=== PATIENT | male | born 1935 | race Caucasian/White ===

== ENCOUNTER 2019-07-15 15:50 | Outpatient (CLI) | payer MEDICARE, SELFPAY ==
--- NOTE | ~2019-07-15 | XR_ITS ---
XR abdomen obstructive series 07/15/2019 16:20 Indication: Dominant distention. Evaluate for obstruction. Procedure: Supine and upright views of the abdomen Comparison: No prior studies for comparison. Findings: There is moderate gas throughout the colon with gas in the rectum. No definite small bowel dilation. Moderate fecal material in the colon. No free air. No pneumatosis. There are calcified gran ulomas in the left lung base. No acute osseous abnormality. Impression: 1: No bowel obstruction. Moderate gas in the colon, possibly ileus. Moderate colonic fecal loading. Reviewed, dictated and finalized at location A. LANCE MODEL Impression: 1: No bowel obstruction. Moderate gas in the colon, possibly ileus. Moderate co lonic fecal loading.
== END 2019-07-15 15:51 | disposition home or self-care (01) ==
LOC: ANHIMG 15:57
PROVIDERS: PCP Physician Assistant; Visit Provider Physician Assistant
DX: R14.0 Abdominal distension (gaseous) (principal)
CPT/HCPCS: 74019

== ENCOUNTER 2020-03-23 17:51 | Emergency (ER) | payer MEDICARE, SELFPAY ==
--- NOTE | ~2020-03-23 | XR_ITS ---
EXAMINATION: XR chest 2V DATE: 03/23/2020 19:58 INDICATION: Mid chest pain TECHNIQUE: PA and lateral views of the chest are obtained. COMPARISON: 06/01/2011 FINDINGS: The lungs are hyperinflated but free of acute opacities. Calcified pulmonary nodules and ca lcified left hilar lymph nodes are consistent with old granulomatous disease. There is scarring in th e lung apices. There is no pleural effusion or pneumothorax. The cardiomediastinal silhouette is norm al. There is mild thoracic spondylosis. IMPRESSION: 1. Hyperinflation without acute cardiopulmonary abnormality. Reviewed, dictated and finalized at location A.
--- NOTE | ~2020-03-23 | CT_ITS ---
EXAMINATION: CT brain wo con INDICATION: Headache COMPARISON: 06/01/2011 TECHNIQUE: Standard unenhanced head CT. The dose-length product (DLP) was 605.33 mGy-cm. The mA was a djusted according to patient size. Iterative reconstruction technique was employed. FINDINGS: There is no acute intraparenchymal hemorrhage. No evidence of mass lesion. No evidence of a cute infarction. There is mild periventricular and subcortical hypodensity probably related to small vessel ischemic disease. There is mild prominence of the sulci and ventricles related to cerebral atr ophy. Intracranial calcified cerebral atherosclerosis is noted. There are no extra-axial collections. There is no mass effect or midline shift. The orbits and soft tissues are unremarkable. There is mil d mucosal thickening of the paranasal sinuses. IMPRESSION: 1. No acute intracranial abnormality. 2. Age related findings. Reviewed, dictated and finalized at location A.
--- NOTE | ~2020-03-23 | XR_ITS ---
EXAMINATION: XR ribs LT 2V INDICATION: Left chest pain TECHNIQUE: 3 views of the left ribs were obtained. COMPARISON: 06/01/2011 FINDINGS: No displaced rib fracture is identified. The left hemithorax is free of acute opacities. Ca lcified pulmonary nodules and calcified left hilar lymph nodes are consistent with old granulomatous disease. IMPRESSION: 1. No displaced rib fracture identified. Reviewed, dictated and finalized at location A.
--- NOTE | ~2020-03-23 | CT_ITS ---
EXAMINATION: CTA chest PE protocol DATE: 03/24/2020 04:22 INDICATION: Chest pain, midsternal area. TECHNIQUE: Computed tomography angiography (CTA) of the chest was performed with 100 mL Omnipaque-350 intravenous contrast timed to evaluate the pulmonary arteries. Coronal maximum intensity projection 3D-reconstructions were created by the technologist. Automated exposure control and iterative reconst ruction technique were employed. Exam dose: 281.00 mGy-cm total exam DLP. COMPARISON: None. FINDINGS: There is diagnostic contrast enhancement of pulmonary embolism and no evidence of pulmonary embolism. There is thoracic aortic, great vessel and coronary artery calcification. No thoracic aortic aneurysm or dissection. Normal heart size. No pericardial or pleural effusion. No hilar or mediastinal mass lesion or lymphadenopathy. Old pulmonary granulomatous disease. Calcifie d hepatic and splenic granulomas. Bilateral apical fibrocalcific scarring. Impression 4 mm lingular indeterminate opacity (series 4 image 65). No pulmonary infiltrate or consolidation. IMPRESSION: No evidence of pulmonary embolism Old pulmonary granulomatous disease Reviewed, dictated and finalized at Location A. Reviewed, dictated and finalized at location A. Impression 4 mm lingular indeterminate opacity (series 4 image 65). No pulmonary infiltrate or consolidation.
--- NOTE | 2020-03-23 17:52 | ECG_ITS ---
Measurements Intervals [place] Rate: 92 P: 74 MS: 294 QRS: -5 QRSD: 86 T: 58 QT: 361 QTc: 447 Interpretive Statements SINUS RHYTHM WITH FIRST DEGREE AV BLOCK SUPRAVENTRICULAR BIGEMINY AND ATRIAL PREMATURE COMPLEXES CANNOT RULE OUT SEPTAL INFARCT, AGE INDETERMINATE BASELINE WANDER- I, III, AVL ABNORMAL ECG Electronically Signed On 03-23-2020 20:50:28 CDT by Des Gatica D.O.
[2020-03-23 19:04] VITALS: BP 146/70; PULSE 99; RESP 18; TEMP 36.9; O2SAT 99
[2020-03-23 19:16] LABS: Basophils Percent Auto 0.3 % (0.2-1.2); Eosinophils Absolute Auto 0.1 K/mm3 (0-0.3); Eosinophils Percent Auto 1.2 % (0-4.4); Hematocrit 35.4 % (42.0-52.0); Hemoglobin 11.6 g/dL (14.0-18.0); Immature Granulocyte Absolute 0.04 K/mm3 (0.00-0.031); Immature Granulocyte Percent A 0.4 % (0-0.5); Lymphocytes Absolute Auto 1.06 K/mm3 (0.9-3.2); Lymphocytes Percent Auto 10.3 % (18.3-44.2); Mean Corpuscular HGB Conc 32.8 g/dl (32-36); Mean Corpuscular Hemoglobin 31.5 pg (26-34); Mean Corpuscular Volume 96.2 fl (80-100); Mean Platelet Volume 9.3 fl (7.4-10.4); Monocytes Absolute Auto 0.6 K/mm3 (0.1-0.6); Monocytes Percent Auto 6.1 % (2.6-8.5); Neutrophils Absolute Auto 8.4 K/mm3 (1.3-6.7); Neutrophils Percent Auto 81.7 % (45.5-73.1); Platelet Count Result 325 k/mm3 (150-375); Red Blood Count 3.68 M/mm3 (4.6-6.20); White Blood Count 10.3 K/mm3 (4.5-10.0)
[2020-03-23 19:28] LABS: Prothrombin Time 12.8 Seconds (11.1-14.7)
[2020-03-23 19:29] LABS: Partial Thromboplastin Time 27.1 SECONDS (22.3-36.8)
[2020-03-23 19:47] LABS: Anion Gap 12 mmol/L (8-16); Blood Urea Nitrogen 29 mg/dL (9-20); Carbon Dioxide 25 mmol/L (22-30); Chloride 105 mmol/L (98-107); Estimated CRCL calculation 46 ml/min; Estimated Glomerular Filt Rate > 60; Glucose 136 mg/dL (75-110); Potassium 4.6 mmol/L (3.4-5.0); Sodium 142 mmol/L (137-145)
[2020-03-23 19:59] LABS: Troponin I < 0.012 ng/mL (0.000-0.034)
[2020-03-23 22:00] VITALS: BP 168/73; PULSE 67; RESP 15; TEMP 36.7; O2SAT 98
[2020-03-23 22:30] LABS: Troponin I < 0.012 ng/mL (0.000-0.034)
[2020-03-23 22:37] VITALS: PULSE 88
--- NOTE | 2020-03-23 22:38 | ED.CHESTPAIN ---
HPI - Chest Pain General Chief Complaint: Chest Pain Stated Complaint: CP Time Seen by Provider: 03/23/20 22:32 Source: RN notes reviewed History of Present Illness HPI narrative: Patient presents emergency department from home for chest pain. Patient states the pain is located over his bilateral anterior chest. States the pain is described as aching and worse with movement of his arms bilaterally as well as deep inspiration. Per the patient's son is present patient had an episode of hypoglycemia at approximately 1230 today when he was at his house with a friend. At that time the patient fell striking his left frontal head and his chest and has had pain since that time. He is taken no previous pain medication. Patient denies any fevers or chills shortness of breath abdominal pain nausea vomiting diarrhea or any other symptoms. Related Data Allergies Allergy/AdvReac Type Severity Reaction Status Date / Time No Known Allergies Allergy Verified 03/23/20 19:08 Review of Systems Review of Systems: Narrative: Gen.: Denies fevers or chills Eyes: Denies eye pain or visual change ENT: Denies congestion Respiratory: Denies shortness of breath or cough CV: See HPI GI: Denies abdominal pain nausea, emesis or diarrhea denies burning, urgency, frequency or hematuria Musculoskeletal: Denies back pain or muscle pain Neuro: Denies numbness, tingling, weakness or focal weakness Skin: Denies rash Except as documented, all other systems reviewed and negative [facility] Past Medical History Medical History (Updated 03/24/20 @ 00:08 by Anders Florentino DO) Diabetes mellitus Social History Social History (Updated 03/23/20 @ 22:39 by Anders Florentino DO) Smoking status: Never smoker Gender identity (if verbalized by the patient): Male Sexual Orientation (if Verbalized by the Patient): Straight or Heterosexual Exam Narrative: Exam Narrative: APPEARANCE: No acute distress, nontoxic, resting in bed EYES: EOMI HEENT: Normocephalic, cysts swelling and mild tenderness over the left forehead with overlying abrasion, the remainder the face is nontender nares pain or mucosa moist Neck: Supple, no midline tenderness to palpation full range of motion without pain RESPIRATORY: No respiratory distress Clear to auscultation bilaterally with no rhonchi wheezing or rales. CARDIOVASCULAR: Regular rate and rhythm without murmurs rubs or gallops. Chest: Tender palpation of the left anterior inferior ribs 8 through 10, pain increased with deep inspiration and movement of the torso ABDOMINAL: Soft, nontender, nondistended, no rebound or guarding MUSCULOSKELETAl: Moves all extremities. No clubbing, cyanosis or edema. NEURO: Awake and alert x 3. Following commands, speech normal, no focal deficits SKIN:: Warm, dry. No rashes lesions or abrasions PSYCHIATRIC: Normal affect/mood, Course Course Emergency Course: Following CT can reevaluate the patient the patient has no midline tenderness over the sternum doubt sternal fracture Vital Signs Vital signs: Vital Signs Temperature 98.4 F 03/23/20 19:04 Pulse Rate 99 03/23/20 19:04 Respiratory Rate 18 03/23/20 19:04 Blood Pressure 146/70 H 03/23/20 19:04 Pulse Oximetry 99 03/23/20 19:04 Temperature 98.1 F 03/23/20 22:00 Pulse Rate 90 03/24/20 00:00 Respiratory Rate 17 03/24/20 00:00 Blood Pressure 113/68 03/24/20 00:00 Pulse Oximetry 100 03/24/20 00:00 MDM - Chest Pain Lab Data Result diagrams: 03/23/20 19:07 03/23/20 19:07 Labs: Lab Results 03/23/20 03/23/20 03/23/20 Range/Units 19:07 19:07 19:07 WBC 10.3 H (4.5-10.0) K/mm3 RBC 3.68 L (4.6-6.20) M/mm3 Hgb 11.6 L (14.0-18.0) g/dL Hct 35.4 L (42.0-52.0) % MCV 96.2 (80-100) fl MCH 31.5 (26-34) pg MCHC 32.8 (32-36) g/dl RDW 13.0 (11.5-14.5) % Plt Count 325 (150-375) k/mm3 MPV 9.3 (7.4-10.4) fl Immature Gran % (Auto) 0.4 (0-0
--- NOTE | 2020-03-23 23:23 | PC.NURSE ---
I am charting the EKG, I did not take it.
[2020-03-24] VITALS: BP 113/68; PULSE 90; RESP 17; O2SAT 100
[2020-03-24 04:53] LABS: Troponin I < 0.012 ng/mL (0.000-0.034)
== END 2020-03-24 02:00 | disposition home or self-care (01) ==
PROVIDERS: General Practice; Emergency Provider Emergency Medicine; PCP Physician Assistant
DX: R07.89 Other chest pain (principal); S00.83XA Contusion of other part of head, initial encounter; W19.XXXA Unspecified fall, initial encounter; E11.9 Type 2 diabetes mellitus without complications
CPT/HCPCS: 36415; 70450; 71046; 71100; 71275; 80048; 84484; 85025; 85610; 85730; 93005; 96374; 99284; J0131; Q9967

== ENCOUNTER 2020-08-16 17:28 | Emergency (ER) | payer MEDICARE, SELFPAY ==
--- NOTE | ~2020-08-16 | CT_ITS ---
EXAMINATION: CT brain wo con INDICATION: Head injury COMPARISON: 03/23/2020 TECHNIQUE: Standard unenhanced head CT. The dose-length product (DLP) was 605.33 mGy-cm. The mA was a djusted according to patient size. Iterative reconstruction technique was employed. FINDINGS: There is no acute intraparenchymal hemorrhage. No evidence of mass lesion. No evidence of a cute infarction. 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 There is mild periventric ular and subcortical hypodensity probably related to small vessel ischemic disease. There is mild pro minence of the sulci and ventricles related to cerebral atrophy. Intracranial calcified cerebral athe rosclerosis is noted. There are no extra-axial collections. There is no mass effect or midline shift. Left frontal scalp soft tissue swelling is noted. There is a small right mastoid effusion. IMPRESSION: 1. Left frontal scalp soft tissue swelling without acute intracranial abnormality. 2. Age related findings. Reviewed, dictated and finalized at location A. RINARY ANATOMIST IMPRESSION: 1. Left frontal scalp soft tissue swelling without acute intracranial abnormali ty. 2. Age related findings.
--- NOTE | ~2020-08-16 | CT_ITS ---
EXAMINATION: CT facial & cervical spine wo DATE: 08/16/2020 19:01 INDICATION: Facial and neck pain, head injury TECHNIQUE: Computed tomography (CT) of the maxillofacial region and cervical spine was performed with out intravenous contrast. The dose-length product (DLP) was 211.21 mGy-cm. Automated exposure control and iterative reconstruction technique were employed. COMPARISON: None FINDINGS: MAXILLOFACIAL CT: There is left frontal scalp soft tissue swelling. No facial bone fracture is identified. There is min imal mucosal thickening of the ethmoidal air cells. A small right mastoid effusion is noted. Changes in the globes are likely from ocular lens surgery. CERVICAL SPINE CT: There is no fracture, dislocation, or subluxation. There is severe loss of intervertebral disc space height at C6-7. Moderate loss of intervertebral disc space height is present throughout the remainder of the cervical spine. There is fibrous union of the posterior C1 ring. The odontoid is intact. The prevertebral soft tissues are normal. There is calcification of the posterior longitudinal ligament w hich results in moderate to severe stenosis at multiple levels in the cervical spine. IMPRESSION: 1. Left frontal scalp hematoma without facial bone fracture. 2. Severe cervical spondylosis without acute findings. Reviewed, dictated and finalized at location A. [employer]
--- NOTE | ~2020-08-16 | XR_ITS ---
EXAMINATION: XR chest 2V DATE: 08/16/2020 19:06 INDICATION: Hypoglycemia, fall TECHNIQUE: AP and lateral views of the chest are obtained. COMPARISON: 03/23/2020 FINDINGS: There are minimal airspace opacities in the left lung base. There is no pleural effusion or pneumothorax. The cardiomediastinal silhouette is normal. There is mild thoracic spondylosis. IMPRESSION: 1. Left basilar airspace opacity, consistent with atelectasis versus pneumonia. Reviewed, dictated and finalized at location A. [employer] RECRUITING INTERN
[2020-08-16 17:30] VITALS: BP 147/76; PULSE 73; RESP 16; TEMP 36.3; O2SAT 100
[2020-08-16 17:38] LABS: Glucose Point of Care 73 (65-105)
[2020-08-16 18:16] VITALS: BP 127/60; PULSE 80; RESP 17
[2020-08-16 18:46] LABS: Glucose Point of Care 189 (65-105)
[2020-08-16 18:47] VITALS: BP 130/71; PULSE 92; RESP 16
[2020-08-16 18:47] LABS: Basophils Percent Auto 0.1 % (0.2-1.2); Eosinophils Percent Auto 0.2 % (0-4.4); Hematocrit 33.9 % (42.0-52.0); Hemoglobin 11.1 g/dL (14.0-18.0); Immature Granulocyte Absolute 0.02 K/mm3 (0.00-0.031); Immature Granulocyte Percent A 0.2 % (0-0.5); Lymphocytes Absolute Auto 0.72 K/mm3 (0.9-3.2); Lymphocytes Percent Auto 8.9 % (18.3-44.2); Mean Corpuscular HGB Conc 32.7 g/dl (32-36); Mean Corpuscular Volume 94.7 fl (80-100); Mean Platelet Volume 9.6 fl (7.4-10.4); Monocytes Absolute Auto 0.5 K/mm3 (0.1-0.6); Monocytes Percent Auto 6.2 % (2.6-8.5); Neutrophils Absolute Auto 6.8 K/mm3 (1.3-6.7); Neutrophils Percent Auto 84.4 % (45.5-73.1); Platelet Count Result 304 k/mm3 (150-375); Red Blood Count 3.58 M/mm3 (4.6-6.20); Red Cell Distribution Width 13.6 % (11.5-14.5); White Blood Count 8.1 K/mm3 (4.5-10.0)
--- NOTE | 2020-08-16 19:01 | ED.GENADULT ---
HPI - General Adult General Chief complaint: Fall Stated complaint: Fall - on ground since 1200 today Time Seen by Provider: 08/16/20 19:01 Source: patient Mode of arrival: EMS Limitations: no limitations History of Present Illness HPI narrative: 85-year-old man that was brought in by EMS after his family found him on the floor at home confused. Unclear as to how long patient was on the floor but the son estimates as much is 4 hours. Glucose at the scene was 29, the patient states that he never lost consciousness. He was walking into his kitchen to get lunch when he stumbled and fell into a door jam. Onset (ago): hour(s) Associated symptoms: denies other symptoms Related Data Allergies Allergy/AdvReac Type Severity Reaction Status Date / Time No Known Allergies Allergy Verified 03/23/20 19:08 Review of Systems Review of Systems: All systems reviewed & are unremarkable except as noted in HPI and below PMFSH Past Medical History Medical History Diabetes mellitus Social History Social History Smoking status: Never smoker Gender identity (if verbalized by the patient): Male Exam Const: General: no acute distress and alert Orientation/consciousness: patient oriented x3 HENMT: Head: No palpable skull fracture present, hematoma left frontal, laceration (left frontal, 3 cm) and periorbital ecchymosis (hematoma and abrasion to left eyelid) General nose exam: Normal external nose present (no pain to palpation) Eyes: Pupils: Equal, round and reactive pupils present EOM: EOMs intact bilaterally Resp: Effort & Inspection: normal respiratory effort Auscultation: clear to auscultation bilaterally Cardio: Rate: regular rate Rhythm: regular rhythm Back/Spine/Pelvis: Cervical Spine: normal cervical lordosis and cervical ROM normal Skin: General skin exam: normal color Wounds: wounds noted (right forarm skin tear.~ 6 cm) Neuro: General: patient oriented x3 and moves all extremities Extrem: General: normal to inspection Psych: Appearance: grossly normal Mental Status: mental status grossly normal Thought content: Yes Normal thought content present Course Course Emergency Course: Skin tear on right forearm was washed and covered with antibiotic ointment and cling. left eyelid abrasion was washed, there is no tear or laceration that is repairable. CT normal. CXR with left base atelectasis. Pt is alert and pleasant. He has eaten a meal. Son states he is staying with him tonight and tomorrow day. Vital Signs Vital signs: Vital Signs Temperature 36.3 C L 08/16/20 17:30 Pulse Rate 73 08/16/20 17:30 Respiratory Rate 16 08/16/20 17:30 Blood Pressure 147/76 H 08/16/20 17:30 Pulse Oximetry 100 08/16/20 17:30 Temperature 36.3 C L 08/16/20 17:30 Pulse Rate 92 08/16/20 18:47 Respiratory Rate 16 08/16/20 18:47 Blood Pressure 130/71 08/16/20 18:47 Pulse Oximetry 100 08/16/20 17:30 Procedures Laceration Laceration 1: Date: 08/16/20 Time: 19:45 Site: scalp (left forehead) Size (cm): 6 Description: linear Depth: simple, single layer Local Anesthetic: none ====== Skin Level ====== Skin layer closed with: dermabond ====== Subcutaneous Layer ====== ====== Muscle Layer ====== ====== Tendon Layer ====== Medical Decision Making Vital Signs Vital Signs: Vital Signs Temperature 36.3 C L 08/16/20 17:30 Pulse Rate 73 08/16/20 17:30 Respiratory Rate 16 08/16/20 17:30 Blood Pressure 147/76 H 08/16/20 17:30 Pulse Oximetry 100 08/16/20 17:30 Temperature 36.3 C L 08/16/20 17:30 Pulse Rate 92 08/16/20 18:47 Respiratory Rate 16 08/16/20 18:47 Blood Pressure 130/71 08/16/20 18:47 Pulse Oximetry 100 08/16/20 17:30 Lab Data Result diagrams: 08/16/20 18:41 03
[2020-08-16 20:24] VITALS: BP 120/73; PULSE 95; RESP 18; O2SAT 100
== END 2020-08-16 20:25 | disposition home or self-care (01) ==
PROVIDERS: Emergency Medicine; Emergency Provider Emergency Medicine; PCP Physician Assistant
DX: S01.81XA Laceration without foreign body of other part of head, initial encounter (principal); S00.212A Abrasion of left eyelid and periocular area, initial encounter; S51.811A Laceration without foreign body of right forearm, initial encounter; E11.9 Type 2 diabetes mellitus without complications; W01.0XXA Fall on same level from slipping, tripping and stumbling without subsequent striking against object, initial encounter
CPT/HCPCS: 12014; 36415; 70450; 70486; 71046; 72125; 82948; 85025; 99284

== ENCOUNTER 2020-08-20 12:53 | Inpatient (IN) | payer MEDICARE, SELFPAY ==
[2020-08-20] VITALS (9 sets, daily range): BP systolic 113–138; BP diastolic 51–75; PULSE 74–148; RESP 16–19; TEMP 36.6–37.1; O2SAT 98–100; BMI 21.7
--- NOTE | ~2020-08-20 | MR_ITS ---
EXAMINATION: MR lumbar spine wo/w con EXAM DATE: 08/21/2020 11:49 INDICATION: Weakness, lower limb spasticity. TECHNIQUE: Multi-sequential, multiplanar MR images of the lumbar spine were obtained without contrast . Sagittal T1, T2, T2 fat saturation images. Axial T2 weighted images. Axial T1 weighted sequence. Patient was then injected with 13 mL Multihance intravenous contrast and reimaged. Postcontrast axi al and sagittal T1-weighted fat saturation sequences were obtained. FINDINGS: Mild to moderate anterior wedging of L1 without edema, chronic compression fracture. Otherw ise the vertebral body heights are maintained. There is 2 mm anterolisthesis L4 on L5. Moderate to se ana loss of the L5-S1 disc height, mild at L3-4. The conus medullaris terminates at the L1/2 level a nd has normal signal intensity and morphology. There are no suspicious marrow signal abnormalities. P araspinal soft tissue is unremarkable. No definite areas of abnormal enhancement. Level by level evaluation: Postcontrast axial images are severely limited from patient motion. Asses sment below is based on the sagittal sequence which is only mildly limited. T12-L1: Disc does not extend beyond the endplate margin. Facet arthropathy: None. Neural foraminal stenosis: No stenosis. Central canal stenosis: No stenosis. L1-L2: Disc does not extend beyond the endplate margin. Facet arthropathy: None. Neural foraminal stenosis: No stenosis. Central canal stenosis: No stenosis. L2-L3: There is a minimal diffuse disc bulge. Facet arthropathy: Mild. Neural foraminal stenosis: No stenosis. Central canal stenosis: Mild. L3-L4: There is a mild diffuse disc bulge. Facet arthropathy: Mild to moderate. Neural foraminal stenosis: Mild to moderate right, mild left. Central canal stenosis: Mild to moderate. L4-L5: There is a mild to moderate diffuse disc bulge. Facet arthropathy: Moderate to severe. Ligamentum flavum enlargement. Neural foraminal stenosis: Moderate bilateral. Central canal stenosis: Moderate or moderate to severe. L5-S1: There is a mild diffuse disc bulge. Facet arthropathy: Moderate. Neural foraminal stenosis: Moderate to severe right, moderate left. Central canal stenosis: Minimal. IMPRESSION: 1. Limited from motion. 2. L4-5 moderate or moderate to severe central canal stenosis. 3. No acute findings. Reviewed, dictated and finalized at location A. ER GOODS INSPECTOR
--- NOTE | ~2020-08-20 | MR_ITS ---
EXAMINATION: MR cervical spine wo/w con EXAM DATE: 08/21/2020 11:49 INDICATION: Weakness, lower limb spasticity TECHNIQUE: Multi-sequential, multiplanar MR images of the cervical spine were obtained without contra st. Axial T2, axial T2 MERGE sequence. Sagittal T1, T2, T2 fat saturation images also obtained. Axi al T1 weighted sequence. Patient was then injected with 13 mL Multihance intravenous contrast and re imaged. Postcontrast axial and sagittal T1-weighted fat saturation sequences were obtained. Correl ation is made to CT cervical spine 08/16/2020. FINDINGS: Patient has ossification of the posterior longitudinal ligament. There is also evidence of ligamentum flavum hypertrophy at C3-4 and 4-5, with canal narrowed to about 5 mm at these 2 levels. Central canal narrowed to 4 mm at C5-6. This is cord compression from C3 through C7 which is most lik damari chronic, no definite cord edema, but sensitivity for acute compression is low due to patient's mo tion. The vertebral bodies are aligned in the AP dimension. There are no suspicious marrow signal abn ormalities. Paraspinal soft tissue is unremarkable. There are no areas of abnormal enhancement on the post contrast images. Level by level evaluation: Significantly limited from motion. C2-C3: Disc does not extend beyond the endplate margin. Uncovertebral joint arthropathy: None. Facet joint arthropathy: Mild to moderate bilateral. Neural foraminal stenosis: No stenosis. Central canal stenosis: No stenosis. C3-C4: Disc bulge and posterior ossification of posterior longitudinal ligament. Uncovertebral joint arthropathy: Moderate. Facet joint arthropathy: Moderate. Neural foraminal stenosis: Moderate to severe right, moderate left. Central canal stenosis: Moderate . Central canal measures 5 mm in mid sagittal AP diameter . C4-C5: Disc bulge and ossification asymmetric to the right Uncovertebral joint arthropathy: Moderate to severe right, moderate left. Facet joint arthropathy: Moderate bilateral . Neural foraminal stenosis: Severe bilateral. Central canal stenosis: Moderate to severe . Central canal measures 5 mm in mid sagittal AP diameter . C5-C6: Disc bulge and ossification. Uncovertebral joint arthropathy: Severe right, moderate left. Facet joint arthropathy: Moderate bilateral. Neural foraminal stenosis: Severe right, moderate to severe left. Central canal stenosis: Moderate to severe . Central canal measures 4 mm in mid sagittal AP diameter . C6-C7: Disc bulge and posterior ossification Uncovertebral joint arthropathy: Moderate to severe right, moderate left. Facet joint arthropathy: Mild to moderate bilateral. Neural foraminal stenosis: Moderate bilateral. Central canal stenosis: Moderate . Central canal measures 5 mm in mid sagittal AP diameter . C7-T1: There is a minimal diffuse disc bulge. Uncovertebral joint arthropathy: Mild. Facet joint arthropathy: Moderate. Neural foraminal stenosis: Mild left. Central canal stenosis: No stenosis. 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 No definite acute cord edema, uncertain whether this is causing patient's symptoms. Reviewed, dictated and finalized at location A. 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 No definite acute cord edema, uncertain whether this is causing patient's symptoms.
--- NOTE | ~2020-08-20 | XR_ITS ---
EXAMINATION: XR chest 1V portable EXAM DATE: 08/20/2020 13:51 INDICATION: Chest pain. TECHNIQUE: Portable AP frontal chest x-ray was obtained. Comparison is made to prior examination from 08/16/2020. FINDINGS: Scattered left lung calcified granulomata. Chronic right apical pleural thickening. Moderat e hyperinflation. The lungs are otherwise clear. There are no pleural effusions. The cardiomediasti nal silhouette is within normal limits. There is no pneumothorax suspected. The bones and soft tiss ues are unremarkable. IMPRESSION: No acute cardiopulmonary findings. Reviewed, dictated and finalized at location A. ACT REPRESENTATIVE
--- NOTE | ~2020-08-20 | XR_ITS ---
EXAMINATION: XR hip BI 2V w AP pelvis DATE: 08/20/2020 19:33 INDICATION: Bilateral hip pain TECHNIQUE: AP view the pelvis and two views of each hip were obtained. COMPARISON: 07/15/2019 FINDINGS: There is mild to moderate osteoarthritis of the hips. Bone alignment is normal. There is no fracture. Phleboliths are noted in the right pelvis. There is a moderate volume of colonic stool. IMPRESSION: 1. 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 Reviewed, dictated and finalized at location A. ORT OPERATIONS SUPERVISOR
--- NOTE | ~2020-08-20 | XR_ITS ---
EXAMINATION: XR lumbar spine 2-3V DATE: 08/20/2020 19:34 INDICATION: Hip pain and leg weakness TECHNIQUE: Anteroposterior and lateral views of the lumbar spine, and cone-down lateral view of the l umbosacral junction were obtained. COMPARISON: CT, 03/24/2020 FINDINGS: There is an L1 compression fracture with 40% loss of anterior vertebral body height which i s new since the comparison examination. The remaining lumbar vertebral body heights are normal. There are 4 mm of anterolisthesis of L4 on L5. There is mild loss of intervertebral disc space height at L 5-S1. Moderate facet osteoarthritis is noted in the lower lumbar spine. IMPRESSION: 1. L1 compression fracture with 40% loss of anterior vertebral body height, new since the comparison examination. Reviewed, dictated and finalized at location A. SPERSON BOOKS
--- NOTE | ~2020-08-20 | CT_ITS ---
EXAMINATION: CT brain wo con EXAM DATE: 08/20/2020 14:11 INDICATION: Fall, injury 5 days ago. Head injury, abrasion. Tremors. TECHNIQUE: Spiral CT of the head was performed without contrast. Axial, coronal and sagittal images were reviewed. The dose-length product (DLP) for this examination was 605.33 mGy-cm. The exposure w as tailored according to patient size, and iterative reconstruction (ASIR) was used as additional dos e reduction technique. Comparison is made to prior examination from 08/16/2020. FINDINGS: There is no acute intraparenchymal hemorrhage. No evidence of intraparenchymal brain mass lesion. No evidence of acute infarction. Please note that initial head CT has limited sensitivity f or small or acute infarctions. There is mild periventricular and subcortical hypodensity, nonspecific but probably related to small vessel ischemic disease. There is moderate prominence of the sulci a nd ventricles related to cerebral atrophy. There is intracranial carotid arteriosclerosis. There a re no extra-axial collections. There is no mass effect or midline shift. Patient has had bilateral ocular lens surgery. There may be left frontal abrasion. The visualized sinuses and mastoid air cell s are well aerated. IMPRESSION: 1. No acute intracranial findings. 2. Chronic age related findings. Reviewed, dictated and finalized at location A. RER/GRADE CHECK
--- NOTE | ~2020-08-20 | MR_ITS ---
EXAMINATION: MR thoracic spine wo/w con EXAM DATE: 08/21/2020 11:50 INDICATION: Weakness, lower limb spasticity. TECHNIQUE: Multi-sequential, multiplanar MR images of the thoracic spine were obtained without contra st. Sagittal T1, T2, T2 fat saturation, axial T2 weighted images reviewed. Axial T1 weighted sequenc e. Patient was then injected with 13 mL Multihance intravenous contrast and reimaged. Postcontrast axial and sagittal T1-weighted fat saturation sequences were obtained. There is no prior study for c omparison. FINDINGS: There is mild thoracic disc disease, mild to moderate thoracic facet arthropathy. The verte bral bodies are aligned in the AP dimension. The vertebral body heights are maintained. At the lower lumbar levels there is mild central canal stenosis from ligamentum flavum hypertrophy, and arthropath y also causing mild to moderate neural foraminal stenosis. Postcontrast sequences are significantly l imited from patient motion but no abnormal enhancement identified. The spinal cord signal intensity and intrinsic morphology is normal. There are no suspicious marrow signal abnormalities. IMPRESSION: 1. Mild to moderate lumbar spondylosis. 2. No significant stenosis, and no cord signal abnormality suspected. Reviewed, dictated and finalized at location A. OTIC FINISH GRINDING TECHNICIAN
--- NOTE | ~2020-08-20 | MR_ITS ---
EXAMINATION: MR brain/brain stem wo/w con EXAM DATE: 08/21/2020 11:49 INDICATION: Weakness, lower limb spasticity. TECHNIQUE: Magnetic resonance imaging (MRI) of the brain/brain stem obtained without contrast. Sagit pearl T1, axial diffusion, gradient echo (T2*), T1, T2, FLAIR sequences obtained. Patient was then inj ected with 13 cc intravenous Multihance contrast. Axial and coronal postcontrast T1 weighted sequence s obtained. Coronal sequence is limited from patient motion more than the other sequences. Correlatio n is made to head CT from yesterday. FINDINGS: There are no areas of restricted diffusion to suggest acute infarction. There is no acute hemorrhage seen on the T2*, a hemosiderin sensitive sequence. No intraparenchymal brain mass lesion. There is mild periventricular and subcortical T2/FLAIR signal hyperintensity, nonspecific but probab ly related to small vessel ischemic disease (microangiopathy). There is moderate prominence of the sulci and ventricles related to cerebral atrophy. There are no extra-axial collections. Flow voids are seen in the cerebral arteries on the T2-weighted sequences consistent with their expected patenc y. Patient has had bilateral ocular lens surgery. Soft tissue is unremarkable. IMPRESSION: 1. No acute intracranial findings. 2. Chronic age related findings. Reviewed, dictated and finalized at location A. TICE BUILDER
--- NOTE | 2020-08-20 13:18 | ECG_ITS ---
Measurements Intervals [place] Rate: 140 P: 240 WA: 146 QRS: -43 QRSD: 131 T: 89 QT: 306 QTc: 468 Interpretive Statements ATRIAL FLUTTER/TACHYCARDIA WITH RAPID VENTRICULAR RESPONSE INTRAVENTRICULAR CONDUCTION DELAY CANNOT RULE OUT SEPTAL INFARCT, AGE INDETERMINATE INFERIOR INFARCT, AGE INDETERMINATE BORDERLINE ST-T WAVE ABNORMALITY- ANTEROLAT/HIGH LAT LEADS BASELINE ARTIFACT- I, III, AVL ABNORMAL ECG Electronically Signed On 08-20-2020 15:09:27 TRACER LATHE SET UP OPERATOR by Des Gatica D.O.
[2020-08-20 13:29] LABS: Basophils Percent Auto 0.3 % (0.2-1.2); Eosinophils Absolute Auto 0.1 K/mm3 (0-0.3); Eosinophils Percent Auto 1.5 % (0-4.4); Hematocrit 33.3 % (42.0-52.0); Hemoglobin 11.1 g/dL (14.0-18.0); Immature Granulocyte Absolute 0.02 K/mm3 (0.00-0.031); Immature Granulocyte Percent A 0.3 % (0-0.5); Lymphocytes Absolute Auto 1.14 K/mm3 (0.9-3.2); Lymphocytes Percent Auto 14.3 % (18.3-44.2); Mean Corpuscular HGB Conc 33.3 g/dl (32-36); Mean Corpuscular Hemoglobin 31.4 pg (26-34); Mean Corpuscular Volume 94.1 fl (80-100); Mean Platelet Volume 9.3 fl (7.4-10.4); Monocytes Absolute Auto 0.6 K/mm3 (0.1-0.6); Monocytes Percent Auto 7.7 % (2.6-8.5); Neutrophils Absolute Auto 6.1 K/mm3 (1.3-6.7); Neutrophils Percent Auto 75.9 % (45.5-73.1); Platelet Count Result 296 k/mm3 (150-375); Red Blood Count 3.54 M/mm3 (4.6-6.20); Red Cell Distribution Width 13.5 % (11.5-14.5)
--- NOTE | 2020-08-20 13:34 | ED.GENADULT ---
HPI - General Adult General Chief complaint: Weakness Stated complaint: weakness, diff ambulating Time Seen by Provider: 08/20/20 13:09 Source: patient Mode of arrival: wheelchair Limitations: no limitations History of Present Illness HPI narrative: Patient is an 85-year-old male complaining of generalized weakness, unable to stand up and walk, started proxy 1 week ago after he fell. Patient was seen here last week due to the fall, had CT scan of his head, cervical and facial also had a chest x-ray done. His CT scan only showed scalp hematoma, no cervical fracture or subluxation, no facial fractures, no acute intracranial abnormality. Patient denies any falls since then. Patient denies any headache, dizziness, chest pain, shortness of breath, dull pain, nausea, vomiting, diarrhea, fever or chills. Related Data Home Medications Medication Instructions Recorded Confirmed amlodipine 2.5 mg PO DAILY 08/20/20 08/20/20 insulin glargine [Lantus Solostar SUBCUT 08/20/20 U-100 Insulin] lisinopril-hydrochlorothiazide 1 tablet PO DAILY 08/20/20 08/20/20 metformin 1,000 mg PO BID 08/20/20 08/20/20 pravastatin 10 mg PO DAILY 08/20/20 08/20/20 primidone 50 mg PO HS 08/20/20 08/20/20 tramadol 100 mg PO Q6H PRN 08/20/20 08/20/20 Allergies Allergy/AdvReac Type Severity Reaction Status Date / Time No Known Allergies Allergy Verified 08/20/20 13:04 Review of Systems Review of Systems: All systems reviewed & are unremarkable except as noted in HPI and below Constitutional: Constitutional: Denies body ache(s), Denies chills, Denies excessive sweating, Denies fatigue, Denies fever(s), Denies headache(s), Denies lethargy, Denies malaise and Denies weight loss Eyes: Eyes: Denies blurry vision, Denies change in vision and Denies loss of vision ENT: Denies dizziness, Denies ear discharge, Denies headache(s), Denies lip swelling, Denies epistaxis, Denies nasal congestion, Denies neck pain, Denies throat swelling and Denies tongue swelling Cardiovascular: Cardiovascular: Denies chest pain, Denies chest pain at rest, Denies chest pain with activity, Denies diaphoresis, Denies rapid heart rate, Denies edema, Denies irregular heart rhythm, Denies lightheadedness, Denies palpitations, Denies dyspnea and Denies dyspnea on exertion Respiratory: Respiratory: Denies chest congestion, Denies cough, Denies hemoptysis, Denies dyspnea and Denies dyspnea on exertion Gastrointestinal: Gastrointestinal: Denies abdominal pain, Denies melena, Denies hematochezia, Denies diarrhea, Denies nausea, Denies vomiting and Denies hematemesis Musculoskeletal: Musculoskeletal: Denies abnormal gait, Denies deformity, Denies joint swelling, Denies limited range of motion, Denies neck pain and Denies numbness Neurologic: Denies Abnormal speech present, Denies abnormal gait, Denies confusion, Denies dizziness, Denies headache(s), Denies focal weakness, Denies loss of vision, Denies numbness, Denies Other visual disturbances and Denies Sensory deficit (Neuro) Psychiatric: Psychiatric: Denies confusion, Denies depression, Denies auditory hallucinations, Denies homicidal ideation and Denies suicidal ideation Endocrine: Endocrine: Denies cold intolerance, Denies excessive sweating, Denies fatigue, Denies heat intolerance and Denies palpitations Hematologic/Lymphatic: Hematologic/Lymphatic: Denies easy bleeding and Denies easy bruising Allergic/Immunologic: Allergic/Immunologic: Denies lip swelling, Denies throat swelling and Denies tongue swelling PMFSH Past Medical History Medical History Diabetes mellitus Social History Social History Smoking status: Never smoker Gender identity (if verbalized by the patient): Male Exam Const: General: cooperative, healthy appearing, comfortable, no acute distress, well developed, alert and awake; No confusion Orientatio
--- NOTE | 2020-08-20 13:41 | ECG_ITS ---
Measurements Intervals [place] Rate: 87 P: RI: 0 QRS: -31 QRSD: 85 T: 57 QT: 372 QTc: 448 Interpretive Statements SINUS RHYTHM WITH FIRST DEGREE AV BLOCK ATRIAL PREMATURE COMPLEXES CANNOT RULE OUT SEPTAL INFARCT, AGE INDETERMINATE INFERIOR INFARCT, AGE INDETERMINATE BORDERLINE ST-T WAVE ABNORMALITY- HIGH LATERAL LEADS BASELINE ARTIFACT- I, II, III, AVR, AVL, AVF ABNORMAL ECG Electronically Signed On 08-24-2020 15:03:21 SCHOOL COOK by Des Gatica D.O.
[2020-08-20 13:42] LABS: Alanine Aminotransferase 23 U/L (4-50); Albumin Level 3.8 g/dL (3.5-5.1); Alkaline Phosphatase 67 U/L (38-126); Anion Gap 11 mmol/L (8-16); Aspartate Amino Transferase 40 U/L (17-59); Bilirubin,Total 0.3 mg/dL (0.2-1.3); Blood Urea Nitrogen 24 mg/dL (9-20); Calcium 8.3 mg/dL (8.4-10.2); Carbon Dioxide 25 mmol/L (22-30); Chloride 105 mmol/L (98-107); Estimated CRCL calculation 40 ml/min; Estimated Glomerular Filt Rate 58; Glucose 174 mg/dL (75-110); Potassium 4.3 mmol/L (3.4-5.0); Sodium 141 mmol/L (137-145)
[2020-08-20] MEDS: LACTATED RINGERS 1,000 ML 999 ML IV CONT (13:48)
[2020-08-20 14:02] LABS: Lactic Acid Reflex 3.9 mmol/L (0.7-2.1)
[2020-08-20 14:38] LABS: Troponin I < 0.012 ng/mL (0.000-0.034)
[2020-08-20 15:10] LABS: Add Urine Microscopic? YES; Appearance Urine Clear (Clear); Bilirubin Urine Negative (Negative); Blood Urine Negative (Negative); Color Urine Yellow (Yellow); Glucose Urine UA Negative (Negative); Ketones Urine Negative (Negative); Leukocyte Esterase Ur Negative LEU/UL (Negative); Nitrate Urine Negative (Negative); Protein Urine Negative (Negative); Specific Grav Ur 1.019 (1.001-1.035); Urobilinogen Urine Negative mg/dL (<2.0); WBC Urine 0-3 /hpf
[2020-08-20 15:59] LABS: Creatine Kinase 498 U/L (55-170)
[2020-08-20 16:48] LABS: Reflex Lactic Acid Yes or No Add Lactic
[2020-08-20 17:29] LABS: Lactic Acid 1.4 mmol/L (0.7-2.1)
--- NOTE | 2020-08-20 17:37 | ADMGEN ---
This patient, Shanna Bhat, was admitted to 2 Medical Room 255-. Patient/family oriented to hospital policies and general routines including ID bracelet, bed and alarms, visiting hours, pain management, procedures, bathroom and other care routines, personal items, smoking policy, room service/diet, and visiting hours. Information on how to activate the Rapid Response Team has been discussed. Patient/Family are encouraged to report perceived risks to care and to ask questions if they do not understand what they are told or what they should do.
[2020-08-20] MEDS: LACTATED RINGERS 1,000 ML 100 ML IV CONT (18:01)
[2020-08-20 18:26] LABS: Glucose Point of Care 43 (65-105)
[2020-08-20 18:26] LABS: Glucose Point of Care 31 (65-105)
[2020-08-20] MEDS: GLUCOSE ORAL GEL 15 GM OF GLUCSE IN 37.5 GM TUBE PO (18:26)
--- NOTE | 2020-08-20 18:45 | PM.IMHP ---
H&P: HPI History of Present Illness Date/Time: 08/20/20 18:45 Chief Complaint: Weakness, difficulties walking. Narrative: This is a pleasant 85-year-old male independent diabetes, hypertension, and hyperlipidemia who presented to the emergency department earlier today for evaluation of weakness and difficulties walking. He was recently seen emergency department on 08/16/2020 after he was found in a confused state on the kitchen floor by his son. The patient reports feelings of hypoglycemia and stood up to go to the kitchen to get something to eat however did not make it and fell to the floor where he lay for approximately 4 hours. On EMS arrival he was hypoglycemic with a glucose of 29, and he was brought in for evaluation. He sustained numerous abrasions and contusions to the face and right forearm in the fall but all imaging was negative. His glucose stabilized and he was discharged home though he admits that his diabetes is brittle and is not unusual for him to have lows in the 40s or highs in the 300s within the same 24 hour time frame. In any event, since his fall on the he has become progressively more weak and he has had difficulties ambulating as he feels as though his right leg is going to give out. His son has been staying with him since that time and each day he has required more and more assistance with a walker, and today he just could not even get himself up from the recliner. Additionally, he also reports ?jerking? episodes of his right leg for quite some time for which he was prescribed primidone however they have not seen much benefit from that. In fact he more recently has had similar jerking episodes in his left leg. On exam he does have some fine tremors of his hands as well and notes issues with fine motor skills to the point where he is no longer able to write with a pen. At the time my evaluation he is receiving oral glucose as he was once again hypoglycemic. He has no specific complaints but is frustrated about the uncontrollable jerks in his legs. He denies injury to his back and legs in the fall several days ago. He has not had any back pain. No saddle anesthesia, bowel or bladder incontinence, or paresthesias of the lower legs. He denies focal deficits. Review of Systems Review of Systems: Narrative: Twelve systems were reviewed with pertinent positives and negatives as per HPI. No headache. He denies vertigo. No auditory visual changes. Denies focal weakness. No paresthesias. No cold or flu symptoms. She denies chest pain shortness of breath. No cough. No nausea, vomiting, or diarrhea. In fact he has not had a bowel movement for several days. Occasional urinary incontinence since prostatectomy years ago. Denies accidentally taking too much insulin. He did not eat much today. He has lost about 8 pounds in the last 1 month unintentionally. Except as documented, all other systems were reviewed and are negative. [facility] Past Medical History Medical History (Updated 08/20/20 @ 21:54 by Shu Stephen PA-C) Benign prostatic hyperplasia Chronic anemia Hyperlipidemia Hypertension Insulin dependent type 2 diabetes mellitus Prostate cancer Surgical History Surgical History (Updated 08/20/20 @ 21:48 by Shu Stephen PA-C) History of prostatectomy Family History Family History Mother Cerebrovascular accident Father Cerebrovascular accident Throat cancer Social History Social History (Updated 08/20/20 @ 21:49 by Shu Stephen PA-C) Social History: Surrogate decision maker: Jatin Bhat, son. Code status: Full code. Smoking packs per day: 1 Smoking cigarettes per day: 20.0 Years smoked: 5 Smoking pack-years: 5.00 Smoking status: Former smoker Tobacco type: cigarettes Alcohol intake: never Substance use: never Substance use type: does not use Additional living arrangements comments: Patient live
[2020-08-20 18:48] LABS: Glucose Point of Care 81 (65-105)
[2020-08-20 21:01] LABS: Glucose Point of Care 153 (65-105)
[2020-08-20] MEDS: PRIMIDONE 50 MG TABLET 100 MG PO (21:45)
[2020-08-20] MEDS: traMADol HCL (*CRX) 50 MG TABLET PO (21:45)
[2020-08-21] VITALS (7 sets, daily range): BP systolic 115–122; BP diastolic 57–71; PULSE 66–94; RESP 16–18; TEMP 36.6–37; O2SAT 96–98
[2020-08-21 03:49] LABS: Glucose Point of Care 96 (65-105)
[2020-08-21 05:16] LABS: Hematocrit 28.1 % (42.0-52.0); Hemoglobin 9.2 g/dL (14.0-18.0); Mean Corpuscular HGB Conc 32.7 g/dl (32-36); Mean Corpuscular Hemoglobin 30.2 pg (26-34); Mean Corpuscular Volume 92.1 fl (80-100); Mean Platelet Volume 9.4 fl (7.4-10.4); Platelet Count Result 258 k/mm3 (150-375); Red Blood Count 3.05 M/mm3 (4.6-6.20); Red Cell Distribution Width 13.4 % (11.5-14.5); White Blood Count 7.5 K/mm3 (4.5-10.0)
[2020-08-21 05:28] LABS: Alanine Aminotransferase 23 U/L (4-50); Alkaline Phosphatase 57 U/L (38-126); Anion Gap 4 mmol/L (8-16); Aspartate Amino Transferase 44 U/L (17-59); Bilirubin,Total 0.1 mg/dL (0.2-1.3); Blood Urea Nitrogen 22 mg/dL (9-20); Calcium 8.2 mg/dL (8.4-10.2); Carbon Dioxide 28 mmol/L (22-30); Chloride 105 mmol/L (98-107); Creatine Kinase 852 U/L (55-170); Estimated CRCL calculation 48 ml/min; Estimated Glomerular Filt Rate > 60; Glucose 133 mg/dL (75-110); Potassium 3.8 mmol/L (3.4-5.0); Sodium 137 mmol/L (137-145)
[2020-08-21 05:38] LABS: Hemoglobin A1C 6.7 % (<5.7)
[2020-08-21] MEDS: lisinopriL 10 MG TABLET PO (08:22)
[2020-08-21] MEDS: traMADol HCL (*CRX) 50 MG TABLET PO (08:22)
[2020-08-21] MEDS: amLODIPine BESYLATE 5 MG TABLET PO (08:24)
[2020-08-21] MEDS: hydroCHLOROthiazide 12.5 MG CAPSULE PO (08:24)
[2020-08-21 08:36] LABS: Glucose Point of Care 82 (65-105)
--- NOTE | 2020-08-21 09:15 | PC.NURSE ---
Pt to MRI per stretcher.
--- NOTE | 2020-08-21 11:42 | PC.NURSE ---
Patient returned from MRI.
[2020-08-21 11:48] LABS: Glucose Point of Care 143 (65-105)
--- NOTE | 2020-08-21 12:01 | PM.IMPN ---
Progress Note: A&P Assessment and Plan (1) Lower extremity weakness: Code(s): R29.898 - Other symptoms and signs involving the musculoskeletal system Status: Acute Assessment and Plan: Patient with bilateral lower extremity spastic paralysis. Patient did have some symptoms prior to a fall but symptoms have worsened since fall on August 16. Neurology has been consulted. Pravastatin was held. MRI of the brain and spinal cord been ordered. Will follow-up on the results. Brain MRI - No acute findings Cervical MRI - Moderate to severe central canal stenosis C4-5 and C5-6 but no cord edema. Thoracic MRI - No significant stenosis, and no cord signal abnormality suspected. Lumbar MRI - L4-5 moderate or moderate to severe central canal stenosis. Discussed with neurology who felt this was more chronic findings and recommended that when patient is discharged that he follow up with him in the clinic and that the patient will need to see neurosurgery as well. (2) Dysrhythmia, cardiac: Code(s): I49.9 - Cardiac arrhythmia, unspecified Status: Acute Assessment and Plan: Irregular on exam today and EKG on admission concerning for AFlutter. TSH normal. Rate better now. Check EKG and place on tele. RN called to state patient has AFib but EKG actually showing sinus arrhythmia with 1st degree block and PACs. Abdi continue tele and repeat EKG in the morning. (3) Hypoglycemia: Code(s): E16.2 - Hypoglycemia, unspecified Status: Acute Assessment and Plan: Glucose noted to be 31 in ED that was treated successfully. Glucose better controlled but off Lantus for now. Will hold for now until glucose becomes more elevated. Continue sliding scale protocol. (4) Elevated lactic acid level: Code(s): R79.89 - Other specified abnormal findings of blood chemistry Status: Acute Assessment and Plan: LA 3.9 on admisison but normal 3.5hrs later. Etiology unclear. Doubt sepsis. White count normal and no fevers. UA negative. Chest x-ray clear. Continue to monitor. (5) Elevated creatine kinase: Code(s): R74.8 - Abnormal levels of other serum enzymes Status: Acute Assessment and Plan: Creatinine kinase 498 on admission but up to 850 now. Suspect related to fall and poor mobility. Could also be related to statin therapy. Repeat level in the morning. (6) Hypertension: Code(s): I10 - Essential (primary) hypertension Status: Acute Assessment and Plan: Patient's blood pressure was reviewed on 08/21 Blood pressure remains well controlled. Will continue current medications with Norvasc, lisinopril and HCTZ.. (7) Hyperlipidemia: Code(s): E78.5 - Hyperlipidemia, unspecified Status: Acute Assessment and Plan: Pravastatin on hold due to elevated creatinine kinase. (8) Chronic anemia: Code(s): D64.9 - Anemia, unspecified Status: Acute Assessment and Plan: Hemoglobin normally in the 11 range but has dropped to 9.2 today. No evidence of acute blood loss. Will check iron studies and B12, folate. Monitor H&H. (9) Insulin dependent type 2 diabetes mellitus: Code(s): E11.9 - Type 2 diabetes mellitus without complications; Z79.4 - buttermaker helper (current) use of insulin Status: Acute Assessment and Plan: A1c is 6.7. The patient's blood glucose was reviewed on 08/21 Glucose remains well controlled. As above. Continue to hold Lantus. Continue to moniotr with AccuCheks covering with sliding scale. Hypoglycemia protocol available as needed. (10) Benign prostatic hyperplasia: Code(s): N40.0 - Benign prostatic hyperplasia without lower urinary tract symptoms Status: Acute Assessment and Plan: Stable. Not on medications for this. Monitor for urine retention. (11) DVT prophylaxis: Code(s): Z29.9 - Encounter for prophylactic measures, unspecified
--- NOTE | 2020-08-21 12:13 | ECG_ITS ---
Measurements Intervals [place] Rate: 84 P: CA: 0 QRS: -34 QRSD: 90 T: 17 QT: 376 QTc: 446 Interpretive Statements SINUS RHYTHM WITH FIRST DEGREEE AV BLOCK ATRIAL PREMATURE COMPLEXES CANNOT RULE OUT SEPTAL INFARCT, AGE INDETERMINATE BASELINE ARTIFACT- II, III, AVR, AVL, AVF ABNORMAL ECG Electronically Signed On 08-21-2020 14:23:49 RESTAURANT GENERAL MANAGER by Des Gatica D.O.
--- NOTE | 2020-08-21 12:30 | PC.NURSE ---
Dr. Birch notified of EKG results.
--- NOTE | 2020-08-21 14:10 | WPDNEURCNPN ---
Assessment and Plan Assessment and plan (1) Lower extremity weakness: Code(s): R29.898 - Other symptoms and signs involving the musculoskeletal system Status: Acute (2) Unsteady gait: Code(s): R26.81 - Unsteadiness on feet Status: Acute (3) Stenosis of cervical spine with myelopathy: Code(s): M48.02 - Spinal stenosis, cervical region; G99.2 - Myelopathy in diseases classified elsewhere Status: Acute Additional Plan Paai paresis with hyperreflexia upgoing plantar responses bilaterally will need the evaluation for the spinal axis or midline lesion, brain MRI is negative without midline lesion or hydrocephalus, thoracic MRI with moderate spondylosis, lumbar MRI with moderate to severe central canal stenosis at L4-5, cervical spine MRI with mid cervical stenosis and chronic cord compression at the level of C5 and C6 no acute edema Consult date: 08/21/20 Time Seen: 02:30 HPI: Shanna Bhat is a 85 year old male admitted to the hospital for the complaints of generalized weakness with difficulties in ambulation in addition to history of underlying 1. Diabetes mellitus 2. Hypertension 3. Hyperlipidemia. Patient has recently been evaluated in the emergency room on August 16, 2020 when he was reportedly found in a confused state on the kitchen floor by his son and was documented to have with blood sugar of 29 on EMS on arrival during his previous evaluation at home he was discharged after stabilization but he generally runs low blood sugar but recently has become more weak requiring more and more assistance with a walker. He made the statement that he feels as if the right lower extremity giving out and also gave the complaint of jerking episodes of right lower extremity for quite some time which had not responded to Keppra med down he has no complain of back pain no bowel or bladder incontinence or paresthesia of the lower extremities. evaluation up until includes the MRI studies of the MRI of thoracic lumbar and cervical spine and brain though the studies as yet have not been, routine lab is unremarkable, blood cultures are pending Review of Systems Review of Systems: All systems reviewed & are unremarkable except as noted in HPI and below PMFSH Past Medical History Medical History Benign prostatic hyperplasia Chronic anemia Hyperlipidemia Hypertension Insulin dependent type 2 diabetes mellitus Prostate cancer Surgical History Surgical History History of prostatectomy Family History Family History Mother Cerebrovascular accident Father Cerebrovascular accident Throat cancer Social History Social History Social History: Surrogate decision maker: Jatin Bhat, son. Code status: Full code. Smoking packs per day: 1 Smoking cigarettes per day: 20.0 Years smoked: 5 Smoking pack-years: 5.00 Smoking status: Former smoker Tobacco type: cigarettes Alcohol intake: never Substance use: never Substance use type: does not use Additional living arrangements comments: Patient lives in his own home in [place]. Additional occupation/education comments: Retired from [employer]. Gender identity (if verbalized by the patient): Male Spiritual care concerns: No Meds Home Medications and Allergies Home Medications Medication Instructions Recorded Confirmed Type amlodipine 5 mg PO DAILY 08/20/20 08/20/20 History insulin glargine [Lantus Solostar 20 unit SUBCUT QA 08/20/20 08/20/20 History U-100 Insulin] lisinopril-hydrochlorothiazide 1 tablet PO DAILY 08/20/20 08/20/20 History metformin 1,000 mg PO BID 08/20/20 08/20/20 History pravastatin 10 mg PO DAILY 08/20/20 08/20/20 History primidone 100 mg PO HS 08/20/20 08/20/20 History tramadol 50 mg
[2020-08-21 17:27] LABS: Glucose Point of Care 115 (65-105)
[2020-08-21] MEDS: ENOXAPARIN 40 MG/0.4 ML SYRINGE SUB-Q (18:13)
[2020-08-21] MEDS: PRIMIDONE 50 MG TABLET 100 MG PO (20:20)
--- NOTE | 2020-08-21 20:23 | PM.TDS ---
Transfer Discharge Sum: Prov Provider Date of admission: 08/21/20 17:01 Primary care physician: Jennifer Hurst, PASharonC Admitting clinician: Dominick Birch MD Consults: 08/20/20 Consult to Physician Routine Comment: called cellphone Consulting Provider: Daryl Lynch call or contact centre manager/MD group to consult: neurology- notify in am Reason for consultation: lower extremity weakness, spasticity Has provider been notified: Yes Attending physician on discharge: Isaac Birch Discharging clinician: Isaac Birch Anticipated date of transfer: 08/21/20 Receiving physician/facility: [facility]. Spoke with Dr Bhatia. Dr Mccartney accepting DS: Admitting Diagnosis Admitting Diagnosis Admitting Diagnosis: lower extremity weakness. DS: Discharge Diagnosis Discharge Diagnosis (1) Lower extremity weakness: Code(s): R29.898 - Other symptoms and signs involving the musculoskeletal system Status: Acute Assessment and Plan: Patient with bilateral lower extremity spastic paralysis. Patient did have some symptoms prior to a fall but symptoms have worsened since fall on August 16. Neurology has been consulted. Pravastatin was held. MRI of the brain and spinal cord were ordered and showed: Brain MRI - No acute findings Cervical MRI - Moderate to severe central canal stenosis C4-5 and C5-6 but no cord edema. Thoracic MRI - No significant stenosis, and no cord signal abnormality suspected. Lumbar MRI - L4-5 moderate or moderate to severe central canal stenosis. Discussed with neurosurgery who were able to review the images. They recommended transfer to neurosurgery for further evaluation and treatment. Spoke with patient and son and they were updated on the MRI findings and the need for transfer. Both were in agreement. (2) Dysrhythmia, cardiac: Code(s): I49.9 - Cardiac arrhythmia, unspecified Status: Acute Assessment and Plan: Irregular on exam today and EKG on admission concerning for AFlutter. TSH normal. Rate better now. Repeat EKG performed. RN called to state patient has AFib but EKG actually showing sinus arrhythmia with 1st degree block and PACs. (3) Hypoglycemia: Code(s): E16.2 - Hypoglycemia, unspecified Status: Acute Assessment and Plan: Glucose noted to be 31 in ED that was treated successfully. Glucose better controlled but off Lantus for now. (4) Elevated lactic acid level: Code(s): R79.89 - Other specified abnormal findings of blood chemistry Status: Acute Assessment and Plan: LA 3.9 on admisison but normal 3.5hrs later. Etiology unclear. Doubt sepsis. White count normal and no fevers. UA negative. Chest x-ray clear. (5) Elevated creatine kinase: Code(s): R74.8 - Abnormal levels of other serum enzymes Status: Acute Assessment and Plan: Creatinine kinase 498 on admission but up to 850 now. Suspect related to fall and poor mobility. Could also be related to statin therapy. (6) Hypertension: Code(s): I10 - Essential (primary) hypertension Status: Acute Assessment and Plan: Patient's blood pressure was monitored closely and remained well controlled. We continued home Norvasc, lisinopril and HCTZ.. (7) Hyperlipidemia: Code(s): E78.5 - Hyperlipidemia, unspecified Status: Acute Assessment and Plan: Pravastatin on hold due to elevated creatinine kinase and weakness. (8) Chronic anemia: Code(s): D64.9 - Anemia, unspecified Status: Acute Assessment and Plan: Hemoglobin normally in the 11 range but has dropped to 9.2 today. No evidence of acute blood loss. (9) Insulin dependent type 2 diabetes mellitus: Code(s): E11.9 - Type 2 diabetes mellitus without complications; Z79.4 - watermelon inspector (current) use of insulin Status: Acute Assessment and Plan: A1c is 6.7. The patient's blood glucose was monitore
--- NOTE | 2020-08-21 21:50 | PC.NURSE ---
Pt being transferred to [facility]. Spoke with REUBEN Rene at [facility] at 2015 to give report. [facility] ambulance will be transporting pt, awaiting their arrival. Pt stable and resting comfortably.
[2020-08-22 02:13] LABS: Glucose Point of Care 257 (65-105)
--- NOTE | 2020-08-30 10:08 | PC.NURSE ---
Blood cx are negative. Dr. Queta jackson.
== END 2020-08-21 22:05 | disposition short-term general hospital (02) | DRG 552 ==
LOC: ANHED 16:11 → ANH2MED 16:30
PROVIDERS: Physician Assistant; Admitting Provider Internal Medicine; Emergency Provider Emergency Medicine; PCP Physician Assistant; Visit Provider Internal Medicine
DX: M48.02 Spinal stenosis, cervical region (principal); G99.2 Myelopathy in diseases classified elsewhere; N40.0 Benign prostatic hyperplasia without lower urinary tract symptoms; D64.9 Anemia, unspecified; I10 Essential (primary) hypertension; E78.5 Hyperlipidemia, unspecified; E11.649 Type 2 diabetes mellitus with hypoglycemia without coma
CPT/HCPCS: 36415; 70450; 70553; 71045; 72100; 72156; 72157; 72158; 73521; 80053; 81001; 82550; 82948; 83036; 83605; 84443; 84484; 85025; 85027; 87040; 93005; 96361; 96365; 99285; A9270; A9577; G0378; J0696; J1650; J7120

== ENCOUNTER 2020-09-25 07:09 | Emergency (ER) | payer MEDICARE, SELFPAY ==
--- NOTE | ~2020-09-25 | CT_ITS ---
EXAMINATION: CT brain wo con, CT cervical spine wo con EXAM DATE: 09/25/2020 08:45 INDICATION: Fall, head injury, Lovenox . TECHNIQUE: Spiral CT of the head was performed without contrast. Axial, coronal and sagittal images were reviewed. Spiral CT of the cervical spine was performed without contrast. Axial images were rev iewed. Coronal and sagittal reformatted images were also reviewed. The dose-length product (DLP) fo r this examination was 605.33 (accession [id number]), 311.69 (accession [id number]) mGy-cm. The exposure was tailored according to patient size, and iterative reconstruction (ASIR) was used as additional dose reduction technique. Comparison is made to prior examination from 09/09/2020. FINDINGS: HEAD CT: There is no acute intraparenchymal hemorrhage. No evidence of intraparenchymal brain mass l esion. No evidence of acute infarction. There is mild periventricular and subcortical hypodensity, n onspecific but probably related to small vessel ischemic disease. There is mild to moderate promine nce of the sulci and ventricles related to cerebral atrophy. There is intracranial carotid arterios clerosis. There is no mass effect or midline shift. There is no obstructive hydrocephalus suspected . There are no extra-axial collections. There are no acute calvarial fractures. Patient has had bi lateral ocular lens surgery. Soft tissue is unremarkable. The visualized sinuses and mastoid air ce lls are well aerated. CERVICAL CT: Cervicothoracic fusion hardware. Cervical laminectomies. Posterior bone graft material, findings are new compared to previous exam in August. There is no evidence of acute cervical fracture. The odontoid process is intact. Pre-dens space is normal. Prevertebral soft tissue is normal. Th ere are no soft tissue abnormalities identified. There is no disc space widening or traumatic verteb ral body subluxation suspected. Moderate to severe loss of the C6-7 disc height, moderate at the lev els above. IMPRESSION: 1. No acute intracranial findings or cervical fracture. 2. Interval cervical laminectomies, cervical thoracic posterior fusion intact. Reviewed, dictated and finalized at location A. IMPRESSION: 1. No acute intracranial findings or cervical fracture. 2. Interval cervical laminectomies, cervical thoracic posterior fusion intact.
[2020-09-25 07:09] VITALS: BP 116/46; PULSE 80; RESP 13; TEMP 36.6; O2SAT 99
--- NOTE | 2020-09-25 07:47 | ED.FALL ---
HPI - Fall General Chief Complaint: Fall Stated Complaint: Fall/HI Time Seen by Provider: 09/25/20 07:18 Source: patient and old records reviewed Mode of arrival: EMS Limitations: clinical condition History of Present Illness HPI Narrative: 85-year-old male Presents from [facility] after being thought to a fallen out of a reclining chair Episode was unwitnessed so nobody is really sure He does have a small bruise on his left forehead He did not recall having other symptoms before the episode or feeling ill Patient recalls having neck surgery recently but he does not recall exactly when, where, or for what indication that it was done Appears that 30 mg daily of Lovenox is on his med list He was recently hospitalized here after falling and transferred, it is unclear what happened, but it does look like a month or so ago he was living at home and now he is in assisted living Related Data Home Medications Medication Instructions Recorded Confirmed acetaminophen 325 mg PO Q4-8H PRN 09/25/20 amlodipine 5 mg PO DAILY 09/25/20 budesonide [Pulmicort] 0.25 mg INHALATION BID 09/25/20 calcium carbonate-vitamin D3 1 tablet PO BID 09/25/20 [Calcium 600 + D(3)] docusate sodium 100 mg PO BID 09/25/20 doxazosin 2 mg PO DAILY 09/25/20 enoxaparin [Lovenox] mg SUBCUT 09/25/20 hydrochlorothiazide 12.5 mg PO DAILY 09/25/20 insulin glargine [Lantus Solostar 8 unit SUBCUT BID 09/25/20 U-100 Insulin] insulin glargine [Lantus Solostar 15 unit SUBCUT BID 09/25/20 U-100 Insulin] insulin lispro [Humalog KwikPen 1 unit SUBCUT ACHS 09/25/20 Insulin] ipratropium-albuterol 3 ml INHALATION QID PRN 09/25/20 iron ps [id number] acid 1 cap PO DAILY 09/25/20 [Poly-Iron 150 Forte] levofloxacin 500 mg PO DAILY 09/25/20 lisinopril 10 mg PO DAILY 09/25/20 lisinopril-hydrochlorothiazide 1 tablet PO DAILY 09/25/20 [Zestoretic] pantoprazole 40 mg PO DAILY 09/25/20 polyethylene glycol 3350 [Miralax] 17 g PO DAILY 09/25/20 potassium chloride 20 meq PO DAILY 09/25/20 pravastatin 10 mg PO DAILY 09/25/20 primidone 50 mg PO HS 09/25/20 quetiapine 12.5 mg PO BID 09/25/20 quetiapine 25 mg PO DAILY 09/25/20 quetiapine 50 mg PO HS 09/25/20 ramelteon mg PO 09/25/20 ropinirole 0.5 mg PO TID 09/25/20 sennosides [Senna Lax] 8.6 mg PO BID 09/25/20 Allergies Allergy/AdvReac Type Severity Reaction Status Date / Time No Known Allergies Allergy Verified 09/25/20 07:21 Review of Systems Review of Systems: ROS unobtainable: Yes unobtainable due to mental status Constitutional: Constitutional: Denies fever(s) Cardiovascular: Cardiovascular: Denies chest pain Respiratory: Respiratory: Denies dyspnea Gastrointestinal: Gastrointestinal: Denies vomiting Musculoskeletal: Musculoskeletal: Reports back pain Comments: Neck pain Neurologic: Denies focal weakness [facility] Past Medical History Medical History Benign prostatic hyperplasia Chronic anemia Hyperlipidemia Hypertension Insulin dependent type 2 diabetes mellitus Prostate cancer Surgical History Surgical History History of prostatectomy Family History Family History Mother Cerebrovascular accident Father Cerebrovascular accident Throat cancer Social History Social History Social History: Surrogate decision maker: Jatin Bhat, son. Code status: Full code. Smoking packs per day: 1 Smoking cigarettes per day: 20.0 Years smoked: 5 Smoking pack-years: 5.00 Smoking status: Former smoker Tobacco type: cigarettes Alcohol intake: never Substance use: never Substance use type: does not use Additional living arrangements comments: Patient lives in his own home in [place]. Additional occupation/education comments
[2020-09-25 08:26] VITALS: BP 109/57; PULSE 84; RESP 19; O2SAT 99
[2020-09-25 08:37] LABS: Basophils Percent Auto 0.3 % (0.2-1.2); Eosinophils Absolute Auto 0.3 K/mm3 (0-0.3); Eosinophils Percent Auto 4.1 % (0-4.4); Hematocrit 27.7 % (42.0-52.0); Hemoglobin 8.9 g/dL (14.0-18.0); Immature Granulocyte Absolute 0.02 K/mm3 (0.00-0.031); Immature Granulocyte Percent A 0.3 % (0-0.5); Lymphocytes Absolute Auto 0.83 K/mm3 (0.9-3.2); Lymphocytes Percent Auto 10.7 % (18.3-44.2); Mean Corpuscular HGB Conc 32.1 g/dl (32-36); Mean Corpuscular Hemoglobin 29.2 pg (26-34); Mean Corpuscular Volume 90.8 fl (80-100); Mean Platelet Volume 8.9 fl (7.4-10.4); Monocytes Absolute Auto 0.8 K/mm3 (0.1-0.6); Monocytes Percent Auto 9.7 % (2.6-8.5); Neutrophils Absolute Auto 5.8 K/mm3 (1.3-6.7); Neutrophils Percent Auto 74.9 % (45.5-73.1); Platelet Count Result 345 k/mm3 (150-375); Red Blood Count 3.05 M/mm3 (4.6-6.20); Red Cell Distribution Width 13.6 % (11.5-14.5); White Blood Count 7.8 K/mm3 (4.5-10.0)
[2020-09-25 08:50] LABS: Anion Gap 4 mmol/L (8-16); Blood Urea Nitrogen 33 mg/dL (9-20); Calcium 8.5 mg/dL (8.4-10.2); Carbon Dioxide 27 mmol/L (22-30); Chloride 102 mmol/L (98-107); Estimated CRCL calculation 35 ml/min; Estimated Glomerular Filt Rate 53; Glucose 96 mg/dL (75-110); Sodium 133 mmol/L (137-145)
[2020-09-25 08:53] VITALS: BP 129/50; PULSE 97; RESP 18; O2SAT 100
[2020-09-25 10:05] VITALS: BP 117/56; PULSE 98; RESP 12; O2SAT 97
--- NOTE | 2020-09-25 10:05 | PC.NURSE ---
made contact with [facility] to transfer patient to [facility]. ETA [id number]
--- NOTE | 2020-09-25 10:39 | PC.NURSE ---
[facility] has arrived
--- NOTE | 2020-09-25 10:45 | PC.NURSE ---
Patient transferred to [facility] at this time via [facility]. Report given.
== END 2020-09-25 11:07 ==
PROVIDERS: Emergency Provider Emergency Medicine; PCP Physician Assistant
DX: S00.83XA Contusion of other part of head, initial encounter (principal); N40.0 Benign prostatic hyperplasia without lower urinary tract symptoms; D64.9 Anemia, unspecified; E78.5 Hyperlipidemia, unspecified; I10 Essential (primary) hypertension; E11.9 Type 2 diabetes mellitus without complications; Z85.46 Personal history of malignant neoplasm of prostate; Z90.79 Acquired absence of other genital organ(s); Z87.891 Personal history of nicotine dependence; Z98.1 Arthrodesis status; W07.XXXA Fall from chair, initial encounter; Z79.4 Long term (current) use of insulin
CPT/HCPCS: 36415; 70450; 72125; 80048; 85025; 99284

== ENCOUNTER 2020-11-21 14:14 | Inpatient (IN) | payer MEDICARE, SELFPAY ==
[2020-11-21] VITALS (8 sets, daily range): BP systolic 101–127; BP diastolic 51–72; PULSE 77–86; RESP 15–20; TEMP 36.6–36.8; O2SAT 94–100; BMI 22.5
--- NOTE | ~2020-11-21 | CT_ITS ---
EXAMINATION: CT brain wo con DATE: 11/21/2020 16:57 INDICATION: Altered mental status. Seizure and confusion. TECHNIQUE: Computed tomography (CT) of the head was performed without intravenous contrast. Sagittal and coronal reconstructions were performed. The mA was adjusted according to patient size. Iterative reconstruction technique was employed. The dose-length product was 605.33 mGy-cm. COMPARISON: head CT dated 09/25/2020 FINDINGS: No acute intracranial hemorrhage, acute infarction or abnormal extra axial fluid collection. There is mild scattered white matter hypoattenuation consistent with chronic small vessel ischemic disease. S ymmetric prominence of the sulci and ventricles consistent with moderate age-appropriate diffuse cere bral volume loss. No mass/mass effect. Changes of bilateral intraocular lens replacement. The orbits and, paranasal sinuses are normal. Small bilateral mastoid effusions. Changes of bilateral intraocula r lens replacement. IMPRESSION: 1. No acute intracranial process. 2. Age-related changes including moderate diffuse volume loss and mild scattered white matter hypoatt enuation consistent with chronic small vessel ischemic disease. Reviewed, dictated and finalized at location A. IMPRESSION: 1. No acute intracranial process. 2. Age-related changes including moderate diffuse volume loss and mild scattere d white matter hypoattenuation consistent with chronic small vessel ischemic di sease.
--- NOTE | 2020-11-21 14:43 | ECG_ITS ---
Measurements Intervals [place] Rate: 81 P: 65 WV: 231 QRS: -15 QRSD: 94 T: 66 QT: 367 QTc: 428 Interpretive Statements SINUS RHYTHM WITH FIRST DEGREE AV BLOCK LOW QRS VOLTAGE IN LIMB LEADS CANNOT RULE OUT SEPTAL INFARCT, AGE INDETERMINATE BASELINE WANDER- V6 ABNORMAL ECG Electronically Signed On 11-21-2020 21:07:59 CDT by Des Gatica D.O.
[2020-11-21 15:22] LABS: Basophils Percent Auto 0.3 % (0.2-1.2); Eosinophils Percent Auto 0.1 % (0-4.4); Hematocrit 30.3 % (42.0-52.0); Hemoglobin 9.5 g/dL (14.0-18.0); Immature Granulocyte Absolute 0.08 K/mm3 (0.00-0.031); Immature Granulocyte Percent A 0.7 % (0-0.5); Lymphocytes Absolute Auto 0.78 K/mm3 (0.9-3.2); Mean Corpuscular HGB Conc 31.4 g/dl (32-36); Mean Corpuscular Hemoglobin 27.1 pg (26-34); Mean Corpuscular Volume 86.3 fl (80-100); Mean Platelet Volume 9.1 fl (7.4-10.4); Monocytes Absolute Auto 0.5 K/mm3 (0.1-0.6); Monocytes Percent Auto 4.5 % (2.6-8.5); Neutrophils Absolute Auto 9.7 K/mm3 (1.3-6.7); Neutrophils Percent Auto 87.4 % (45.5-73.1); Platelet Count Result 400 k/mm3 (150-375); Red Blood Count 3.51 M/mm3 (4.6-6.20); Red Cell Distribution Width 14.4 % (11.5-14.5); White Blood Count 11.1 K/mm3 (4.5-10.0)
[2020-11-21 15:28] LABS: Add Urine Microscopic? YES; Appearance Urine Cloudy (Clear); Bacteria Urine Trace /hpf; Bilirubin Urine Negative (Negative); Blood Urine 1+ (Negative); Color Urine Yellow (Yellow); Glucose Urine UA Negative (Negative); Ketones Urine 1+ mg/dL (Negative); Leukocyte Esterase Ur 3+ LEU/UL (Negative); Mucus Urine Rare /lpf; Nitrate Urine Positive (Negative); Protein Urine 1+ mg/dL (Negative); Specific Grav Ur 1.016 (1.001-1.035); Urobilinogen Urine Negative mg/dL (<2.0); WBC Urine >75 /hpf
[2020-11-21 15:31] LABS: Alanine Aminotransferase 14 U/L (4-50); Albumin Level 3.1 g/dL (3.5-5.1); Alkaline Phosphatase 77 U/L (38-126); Anion Gap 12 mmol/L (8-16); Aspartate Amino Transferase 24 U/L (17-59); Bilirubin,Total 0.4 mg/dL (0.2-1.3); Blood Urea Nitrogen 41 mg/dL (9-20); Carbon Dioxide 20 mmol/L (22-30); Chloride 104 mmol/L (98-107); Estimated Glomerular Filt Rate 41; Glucose 186 mg/dL (75-110); Potassium 5.4 mmol/L (3.4-5.0); Sodium 136 mmol/L (137-145)
--- NOTE | 2020-11-21 15:44 | ED.AMS ---
HPI - Altered Mental Status General Chief Complaint: Altered Mental Status Stated Complaint: Altered Mental Status Time Seen by Provider: 11/21/20 15:43 Source: family and EMS Mode of arrival: EMS Limitations: clinical condition and dementia History of Present Illness HPI narrative: The patient is an 85-year-old male independent diabetes, hypertension, hyperlipidemia, dementia, spastic lower extremity paralysis/severe canal stenosis, who presents for evaluation of altered mental status. Patient reportedly had a witnessed convulsive event during physical therapy today. No urinary continence or tongue biting. No history of seizure disorder. Patient is less conversant than normal per son. He states that his blood pressure has been low at the facility for the past 2 weeks. No known fever, chills, nausea or vomiting. Patient is currently awake, alert to person, not to place or time. Denying any head, chest or abdominal pain. Related Data Home Medications Medication Instructions Recorded Confirmed acetaminophen 325 mg PO Q4-8H PRN 09/25/20 amlodipine 5 mg PO DAILY 09/25/20 budesonide [Pulmicort] 0.25 mg INHALATION BID 09/25/20 calcium carbonate-vitamin D3 1 tablet PO BID 09/25/20 [Calcium 600 + D(3)] docusate sodium 100 mg PO BID 09/25/20 doxazosin 2 mg PO DAILY 09/25/20 enoxaparin [Lovenox] mg SUBCUT 09/25/20 hydrochlorothiazide 12.5 mg PO DAILY 09/25/20 insulin glargine [Lantus Solostar 8 unit SUBCUT BID 09/25/20 U-100 Insulin] insulin glargine [Lantus Solostar 15 unit SUBCUT BID 09/25/20 U-100 Insulin] insulin lispro [Humalog KwikPen 1 unit SUBCUT ACHS 09/25/20 Insulin] ipratropium-albuterol 3 ml INHALATION QID PRN 09/25/20 iron ps [id number] acid 1 cap PO DAILY 09/25/20 [Poly-Iron 150 Forte] levofloxacin 500 mg PO DAILY 09/25/20 lisinopril 10 mg PO DAILY 09/25/20 lisinopril-hydrochlorothiazide 1 tablet PO DAILY 09/25/20 [Zestoretic] pantoprazole 40 mg PO DAILY 09/25/20 polyethylene glycol 3350 [Miralax] 17 g PO DAILY 09/25/20 potassium chloride 20 meq PO DAILY 09/25/20 pravastatin 10 mg PO DAILY 09/25/20 primidone 50 mg PO HS 09/25/20 quetiapine 12.5 mg PO BID 09/25/20 quetiapine 25 mg PO DAILY 09/25/20 quetiapine 50 mg PO HS 09/25/20 ramelteon mg PO 09/25/20 ropinirole 0.5 mg PO TID 09/25/20 sennosides [Senna Lax] 8.6 mg PO BID 09/25/20 Allergies Allergy/AdvReac Type Severity Reaction Status Date / Time No Known Allergies Allergy Verified 11/21/20 16:22 Review of Systems Review of Systems: ROS unobtainable: Yes unobtainable due to mental status PMFSH Past Medical History Medical History Benign prostatic hyperplasia Chronic anemia Hyperlipidemia Hypertension Insulin dependent type 2 diabetes mellitus Prostate cancer Surgical History Surgical History History of prostatectomy Family History Family History Mother Cerebrovascular accident Father Cerebrovascular accident Throat cancer Social History Social History Social History: Surrogate decision maker: Jatin Bhat, son. Code status: Full code. Smoking packs per day: 1 Smoking cigarettes per day: 20.0 Years smoked: 5 Smoking pack-years: 5.00 Smoking status: Former smoker Tobacco type: cigarettes Alcohol intake: never Substance use: never Substance use type: does not use Additional living arrangements comments: Patient lives in his own home in [place]. Additional occupation/education comments: Retired from [employer]. Gender identity (if verbalized by the patient): Male Spiritual care concerns: No Exam Narrative: Exam Narrative: GENERAL: Awake, alert HEAD: Normocephalic, atraumatic. EYES: PERRLA and EOMI. ENT: Nares
[2020-11-21] MEDS: SODIUM CHLORIDE 0.9% IV 1,000 ML 999 ML IV CONT ×2 (16:21)
--- NOTE | 2020-11-21 20:00 | ADMGEN ---
This patient, Shanna Bhat, was admitted to Medical Room 342-01. Patient/family oriented to hospital policies and general routines including ID bracelet, bed and alarms, visiting hours, pain management, procedures, bathroom and other care routines, personal items, smoking policy, room service/diet, and visiting hours. Information on how to activate the Rapid Response Team has been discussed. Patient/Family are encouraged to report perceived risks to care and to ask questions if they do not understand what they are told or what they should do.
[2020-11-21] MEDS: SODIUM CHLORIDE 0.9% IV 1,000 ML 125 ML IV CONT (20:50)
[2020-11-21 22:41] LABS: Anion Gap 8 mmol/L (8-16); Blood Urea Nitrogen 38 mg/dL (9-20); Calcium 8.8 mg/dL (8.4-10.2); Carbon Dioxide 22 mmol/L (22-30); Chloride 107 mmol/L (98-107); Estimated CRCL calculation 28 ml/min; Estimated Glomerular Filt Rate 45; Glucose 135 mg/dL (75-110); Potassium 4.7 mmol/L (3.4-5.0); Sodium 137 mmol/L (137-145)
--- NOTE | 2020-11-22 02:10 | PM.IMHP ---
H&P: HPI History of Present Illness Date/Time: 11/22/20 04:30 Chief Complaint: Altered mental status Narrative: 85-year-old male with past medical history of, hyperlipidemia, spinal stenosis and unspecified convulsions who presented to the ER from [facility] with increased altered mental status and possible seizure. The patient was evidently a undergoing physical therapy at [facility] and the patient began having ?convulsions?. The patient was only oriented to self at the time of my evaluation. Patient had a Suggs catheter in place ever since his hospitalization in August 2020. His catheter is due to be changed on the . In August she had was admitted for paralysis and was transferred to [place] for neuro surgical evaluation. As far as I can tell, l the patient did not end of having neuro surgical intervention. The patient was discharged from [place] [facility] where he has remained. At the retirement as far as EMS documentation. Nursing staff tells me that any time the go to interact with the patient that he becomes stiff. He will have periods where he goes to stretch and his extremities will tremor. When the patient relaxes tremor stop. The patient reports that he is not having any pain. Otherwise patient is unable to provide me any history. He has been afebrile since presentation. Review of Systems Review of Systems: Narrative: 12 systems were reviewed with pertinent positives and negatives per HPI. Except as documented in the HPI, all other systems were reviewed and are negative. [facility] Past Medical History Medical History Benign prostatic hyperplasia Chronic anemia Hyperlipidemia Hypertension Insulin dependent type 2 diabetes mellitus Prostate cancer Surgical History Surgical History History of prostatectomy Family History Family History Mother Cerebrovascular accident Father Cerebrovascular accident Throat cancer Social History Social History (Updated 11/22/20 @ 07:58 by Miriam Coley DO) Social History: Surrogate decision maker: Jatin Bhat, son. Code status: Full code. Smoking packs per day: 1 Smoking cigarettes per day: 20.0 Years smoked: 5 Smoking pack-years: 5.00 Smoking status: Former smoker Alcohol intake: never Substance use: never Substance use type: does not use Living arrangements: retirement Additional living arrangements comments: He lives in his own home until August 2020. Occupation/Education: retired Additional occupation/education comments: Retired from [employer]. Gender identity (if verbalized by the patient): Male Spiritual care concerns: No Meds Home Medications and Allergies Home Medications Medication Instructions Recorded Confirmed Type acetaminophen 650 mg PO Q4-8H PRN 09/25/20 11/21/20 History calcium carbonate-vitamin D3 1 tablet PO BID 09/25/20 11/21/20 History [Calcium 600 + D(3)] doxazosin 2 mg PO DAILY 09/25/20 11/21/20 History insulin glargine [Lantus Solostar 10 unit SUBCUT HS 09/25/20 11/21/20 History U-100 Insulin] insulin lispro [Humalog KwikPen 8 unit SUBCUT AC 09/25/20 11/21/20 History Insulin] lisinopril-hydrochlorothiazide 1 tablet PO DAILY 09/25/20 11/21/20 History [Zestoretic] potassium chloride 20 meq PO DAILY 09/25/20 11/21/20 History pravastatin 10 mg PO DAILY 09/25/20 11/21/20 History quetiapine 25 mg PO BID 09/25/20 11/21/20 History ramelteon 8 mg PO HS 09/25/20 11/21/20 History Glucagon Emergency Kit (human) 1 unit IM PRN PRN 11/21/20 11/21/20 History Humalog KwikPen Insulin 1 unit SUBCUT [facility] 11/21/20 11/21/20 History Poly-Iron 150 Forte 1 cap BYMOUTH BID 11/21/20 11/21/20 History Tradjenta 5 mg PO DAILY 11/21/20 11/21/20 History apixaban 2.5 mg PO BID 11/21/20
[2020-11-22 02:26] LABS: Glucose Point of Care 113 mg/dl (65-105)
[2020-11-22] MEDS: SODIUM CHLORIDE 0.9% IV 1,000 ML 125 ML IV CONT ×2 (04:29→12:57)
[2020-11-22 04:41] VITALS: BP 119/44; PULSE 71; RESP 18; TEMP 36.4; O2SAT 92
[2020-11-22 08:06] LABS: Glucose Point of Care 117 mg/dl (65-105)
[2020-11-22 09:47] VITALS: PULSE 71
[2020-11-22] MEDS: PRAVASTATIN SODIUM 10 MG TABLET PO (09:47)
[2020-11-22] MEDS: METOPROLOL TARTRATE 25 MG TABLET PO ×2 (09:47→20:38)
[2020-11-22] MEDS: POLYSACCHARIDE IRON COMPLEX 150 MG CAPSULE BY MOUTH ×3 (09:48→16:37)
[2020-11-22] MEDS: PANTOPRAZOLE 40 MG TABLET PO ×2 (09:48→20:38)
[2020-11-22] MEDS: APIXABAN 2.5 MG TABLET PO ×2 (09:48→16:37)
[2020-11-22] MEDS: QUEtiapine FUMARATE 25 MG TABLET PO ×2 (09:48→20:38)
[2020-11-22] MEDS: DOXAZOSIN MESYLATE 2 MG TABLET PO (09:48)
[2020-11-22] MEDS: CYCLOBENZAPRINE HCL 10 MG TABLET PO ×3 (09:48→16:36)
[2020-11-22 11:39] LABS: Glucose Point of Care 181 mg/dl (65-105)
[2020-11-22 11:40] VITALS: BMI 18.8
--- NOTE | 2020-11-22 13:35 | PCNSR ---
On 11/22/20, the student,Kina Yousif, provided care and completed [facility] documentation on this patient. I have reviewed the student's documentation and agree with the findings.
[2020-11-22 14:00] VITALS: BP 115/43; PULSE 69; RESP 18; TEMP 36.4; O2SAT 100
--- NOTE | 2020-11-22 14:28 | PM.IMPN ---
Progress Note: A&P Assessment and Plan (1) Altered mental status: Qualifiers: Altered mental status type: delirium Qualified Code(s): R41.0 - Disorientation, unspecified Code(s): R41.82 - Altered mental status, unspecified Status: Acute Assessment and Plan: Patient has acute on chronic confusion and likely due to UTI and dehydration -CT of the brain is negative for acute pathology -differential includes dehydration and medication side affects such as Flexeril and Seroquel -will treat the UTI and continue IV fluids in hopes that this will increase his mentation -if he continues to be confused, may consider brain MRI and re-evaluation of some of his medications -I have called the son and left a message with him. -seizure seems less likely at this time but will monitor (2) Acute hyperkalemia: Code(s): E87.5 - Hyperkalemia Status: Acute Assessment and Plan: Resolved, likely due to dehydration -Will recheck BMP -continue IV fluids (3) Acute dehydration: Code(s): E86.0 - Dehydration Status: Acute Assessment and Plan: Continue IV fluids (4) Acute UTI: Code(s): N39.0 - Urinary tract infection, site not specified Status: Acute Assessment and Plan: Continue rocephin -Catheter has been changed out -await urine cx and blood cultures (5) Type 2 diabetes mellitus: Qualifiers: Diabetes mellitus shelter insulin use: with hand assembler for puller over use Diabetes mellitus complication status: without complication Qualified Code(s): E11.9 - Type 2 diabetes mellitus without complications; 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 Time Spent With Patient Time with patient: 25 - 35 minutes Subjective Date/time seen: 11/22/20 14:28 Interval history: Pt is a 85-year-old male here for altered mental status. Patient was seen today and was pretty confused but able to hold a conversation. Patient states that he is not any pain at this time. He cannot tell me any medical history. He does, however, tell me he is at the hospital in that he feels okay. He specifically denies chest pain, shortness of breath, and abdominal pain. I called his son Preston who did not answer and I left a message with him. I also called [facility] and spoke with the staff there about his care. They state that he was transferred to [facility] in August and had some kind of surgery she thinks to his neck. Since then, the patient has been contracted and spastic. When he was 1st admitted to [facility] he was more coherent and he is progressively getting more confused. He has been on an array of medications to help with spasticity which include cyclobenzaprine, baclofen, roperinal and now flexeril. The Seroquel was started in October for delirium and the Flexeril was increased a few weeks ago. Although the patient was confused and weak, prior to the weekend he was able to roll his wheelchair out into the li and hold a conversation. He was increasingly becoming more confused and he quit eating according to the nursing staff which prompted them to bring him to the emergency room. The facility doctor, Dr. Lawrence has seen the patient and has recommended him either go back to a neurosurgeon or hospice. The family wants to do neither at this time. I have not been able to speak to the family. Review of Systems Review of Systems: All systems reviewed & are unremarkable except as noted in HPI and below Exam Narrative: Exam Narrative: General: Frail elderly patient in NAD HEENT: normocephalic Neck: supple, no pain to the cervical spine Neuro: Alert
[2020-11-22 15:54] LABS: Anion Gap 6 mmol/L (8-16); Blood Urea Nitrogen 30 mg/dL (9-20); Calcium 8.3 mg/dL (8.4-10.2); Carbon Dioxide 24 mmol/L (22-30); Chloride 107 mmol/L (98-107); Estimated CRCL calculation 38 ml/min; Estimated Glomerular Filt Rate > 60; Glucose 242 mg/dL (75-110); Potassium 4.8 mmol/L (3.4-5.0); Sodium 137 mmol/L (137-145)
[2020-11-22] MEDS: INSULIN ASPART (*BKC) 100 UNITS/ML SUB-Q (16:47)
[2020-11-22 17:30] LABS: Glucose Point of Care 235 mg/dl (65-105)
[2020-11-22 20:36] VITALS: BP 124/53; PULSE 92; RESP 14; TEMP 36.8; O2SAT 97
[2020-11-22 20:38] VITALS: PULSE 92
[2020-11-22] MEDS: INSULIN GLARGINE (*BKC) 100 UNITS/ML 8 UNITS SUB-Q (20:42)
[2020-11-22 21:13] LABS: Glucose Point of Care 246 mg/dl (65-105)
[2020-11-23 05:25] VITALS: BP 116/60; PULSE 70; RESP 16; TEMP 36.3; O2SAT 100
[2020-11-23 05:56] LABS: Hemoglobin A1C 7.5 % (<5.7)
[2020-11-23 05:59] LABS: Hematocrit 28.5 % (42.0-52.0); Hemoglobin 8.8 g/dL (14.0-18.0); Mean Corpuscular HGB Conc 30.9 g/dl (32-36); Mean Corpuscular Hemoglobin 26.3 pg (26-34); Mean Corpuscular Volume 85.3 fl (80-100); Mean Platelet Volume 9.3 fl (7.4-10.4); Platelet Count Result 358 k/mm3 (150-375); Red Blood Count 3.34 M/mm3 (4.6-6.20); White Blood Count 7.2 K/mm3 (4.5-10.0)
[2020-11-23 06:02] LABS: Anion Gap 4 mmol/L (8-16); Blood Urea Nitrogen 24 mg/dL (9-20); CRP 3.3 mg/dL (<1.0); Calcium 8.8 mg/dL (8.4-10.2); Carbon Dioxide 28 mmol/L (22-30); Chloride 105 mmol/L (98-107); Estimated CRCL calculation 38 ml/min; Estimated Glomerular Filt Rate > 60; Glucose 150 mg/dL (75-110); Potassium 4.4 mmol/L (3.4-5.0); Sodium 137 mmol/L (137-145)
[2020-11-23 07:50] LABS: Glucose Point of Care 133 mg/dl (65-105)
[2020-11-23] MEDS: DOXAZOSIN MESYLATE 2 MG TABLET PO (10:29)
[2020-11-23] MEDS: APIXABAN 2.5 MG TABLET PO ×2 (10:29→16:42)
[2020-11-23] MEDS: PRAVASTATIN SODIUM 10 MG TABLET PO (10:29)
[2020-11-23] MEDS: CYCLOBENZAPRINE HCL 10 MG TABLET PO ×3 (10:29→16:42)
[2020-11-23 10:30] VITALS: PULSE 70
[2020-11-23] MEDS: POLYSACCHARIDE IRON COMPLEX 150 MG CAPSULE BY MOUTH ×2 (10:30→16:43)
[2020-11-23] MEDS: QUEtiapine FUMARATE 25 MG TABLET PO ×2 (10:30→20:36)
[2020-11-23] MEDS: PANTOPRAZOLE 40 MG TABLET PO ×2 (10:30→20:36)
[2020-11-23] MEDS: METOPROLOL TARTRATE 25 MG TABLET PO ×2 (10:30→20:36)
[2020-11-23 11:50] LABS: Glucose Point of Care 201 mg/dl (65-105)
--- NOTE | 2020-11-23 12:04 | WPDNEURCNPN ---
Assessment and Plan Additional Plan cervical myelopathy with quadriparesis will need only supportive care if no surgical intervention has been suggested by the Gaby EDUARDO obviously he will benefit from palliative physical therapy and general supportive medical care Consult date: 11/23/20 Time Seen: 12:30 HPI: Shanna Bhat is a 85 year old male admitted to the hospital for the complaints of change in the mental status reportedly he was undergoing physical therapy at [facility] and began having convulsion he was only oriented to self at the time of initial evaluation Suggs's was in place in August patient sustained paralysis though he did not have any neurosurgical intervention and was discharged from [facility] he does have ongoing history of 1. Hyperlipidemia 2. Spinal stenosis and 3. Possible convulsions, additionally has history of benign prostatic hyperplasia, chronic anemia, hypertension, and type 2 diabetes mellitus, and history of prostatic cancer used to be a former smoker though not drinker, evaluation up until now documented him to have labs with hemoglobin at only 8.8 at this particular time normal platelet count normal WBCs chemistry with a blood sugar of 2 over 1 Gaby on only 24 abnormal UA initial blood cultures negative but the urine culture is pending and CT of the head with moderate diffuse volume loss but no acute intracranial process in August is MRI of the brain was also normal and MRI of cervical spine was consistent with significant cervical canal stenosis at the level of C4-5 C5-6 and C6 and 7 Review of Systems Review of Systems: All systems reviewed & are unremarkable except as noted in HPI and below PMFSH Past Medical History Medical History Benign prostatic hyperplasia Chronic anemia Hyperlipidemia Hypertension Insulin dependent type 2 diabetes mellitus Prostate cancer Surgical History Surgical History History of prostatectomy Family History Family History Mother Cerebrovascular accident Father Cerebrovascular accident Throat cancer Social History Social History Social History: Surrogate decision maker: Jatin Bhat, son. Code status: Full code. Smoking packs per day: 1 Smoking cigarettes per day: 20.0 Years smoked: 5 Smoking pack-years: 5.00 Smoking status: Former smoker Alcohol intake: never Substance use: never Substance use type: does not use Living arrangements: [facility] Additional living arrangements comments: He lives in his own home until August 2020. Occupation/Education: retired Additional occupation/education comments: Retired from [employer]. Gender identity (if verbalized by the patient): Male Spiritual care concerns: No Meds Home Medications and Allergies Home Medications Medication Instructions Recorded Confirmed Type acetaminophen 650 mg PO Q4-8H PRN 09/25/20 11/21/20 History calcium carbonate-vitamin D3 1 tablet PO BID 09/25/20 11/21/20 History [Calcium 600 + D(3)] doxazosin 2 mg PO DAILY 09/25/20 11/21/20 History insulin glargine [Lantus Solostar 10 unit SUBCUT HS 09/25/20 11/21/20 History U-100 Insulin] insulin lispro [Humalog KwikPen 8 unit SUBCUT AC 09/25/20 11/21/20 History Insulin] lisinopril-hydrochlorothiazide 1 tablet PO DAILY 09/25/20 11/21/20 History [Zestoretic] potassium chloride 20 meq PO DAILY 09/25/20 11/21/20 History pravastatin 10 mg PO DAILY 09/25/20 11/21/20 History quetiapine 25 mg PO BID 09/25/20 11/21/20 History ramelteon 8 mg PO HS 09/25/20 11/21/20 History Glucagon Emergency Kit (human) 1 unit IM PRN PRN 11/21/20 11/21/20 History Humalog KwikPen Insulin 1 unit SUBCUT [facility] 11/21/20 11/21/20 History Poly-Iron 150 Forte 1 cap BYMOUTH BID 11/21/20 11/21/20
[2020-11-23] MEDS: INSULIN ASPART (*BKC) 100 UNITS/ML SUB-Q ×2 (13:14→17:48)
--- NOTE | 2020-11-23 14:09 | PM.IMPN ---
Progress Note: A&P Assessment and Plan (1) Altered mental status: Qualifiers: Altered mental status type: delirium Qualified Code(s): R41.0 - Disorientation, unspecified Code(s): R41.82 - Altered mental status, unspecified Status: Acute Assessment and Plan: Patient has acute on chronic confusion and likely due to UTI and dehydration -CT of the brain is negative for acute pathology -differential includes dehydration and medication side affects such as Flexeril and Seroquel -Likely due to UTI&dehydration since pt is already improving -if he worsens or urine culture is negative, may consider brain MRI and re-evaluation of some of his medications -I spoke with his son Jeff 11/22/20 about plan of care -seizure seems less likely at this time but will monitor (2) Acute hyperkalemia: Code(s): E87.5 - Hyperkalemia Status: Acute Assessment and Plan: Resolved, likely due to dehydration (3) Acute dehydration: Code(s): E86.0 - Dehydration Status: Acute Assessment and Plan: Continue IV fluids (4) Acute UTI: Code(s): N39.0 - Urinary tract infection, site not specified Status: Acute Assessment and Plan: Continue rocephin -Catheter has been changed out -await urine cx -blood cultures have no growth to date (5) Type 2 diabetes mellitus: Qualifiers: Diabetes mellitus superintendent terminal insulin use: with superintendent terminal use Diabetes mellitus complication status: without complication Qualified Code(s): E11.9 - Type 2 diabetes mellitus without complications; Z79.4 - superintendent terminal (current) use of insulin Code(s): E11.9 - Type 2 diabetes mellitus without complications Status: Acute Assessment and Plan: Last glucose 201 -will increase his lantus to his home dose of lantus -continue to hold meal time scheduled insulin and continue with sliding scale -adjust medications as needed -a1c 7.5 (6) Cervical myelopathy: Code(s): G95.9 - Disease of spinal cord, unspecified Status: Acute Assessment and Plan: Pt had sx at [place] in august and has not been able to walk since -he continues to be flexed in bed and unable to dosiflex -I recommended to his son to f/u with the neurosurgeon sooner rather than later. Time Spent With Patient Time with patient: 25 - 35 minutes Subjective Date/time seen: 11/23/20 14:09 Interval history: Pt is a 85-year-old male here for altered mental status with history of memory problems. Patient was seen today and is much more interactive. He states he is not having any pain at this time. He specifically denies nausea, vomiting, fevers, chills, constipation, diarrhea, chest pain, sob, or abdominal pain. He knows he is in the hospital but does not remember he is here for urinary tract infection. Review of Systems Review of Systems: All systems reviewed & are unremarkable except as noted in HPI and below Exam Narrative: Exam Narrative: General: Frail elderly patient in NAD HEENT: normocephalic Neck: supple, no pain to the cervical spine Neuro: Alert and oriented to himself and location only. He is more interactive today and his thoughts are more clear. Chronic contractions of his knees and hands. Able to dorsiflex but no plantarflex. CV:RRR Resp:CTA Abd: Soft, non distended. No pain to palpation. Positive bowel sounds Extremities: No swelling, erythema, or pain to palpation. back: stage 1 erythema to the coccyx yellow urine in the galarza bag Objective Data Vital Signs Vital Signs: Vital Signs - 24 hr 11/22/20 20:36 11/22/20 20:38 11/23/20 05:25 Temperature 98.2 F 97.3 F L Pulse Rate 92 92 70 Respiratory Rate 14 16 Blood Pressure 124/53 L 116/60 Pulse Oximetry 97 100 11/23/20 10:30 Temperature Pulse Rate 70 Respiratory Rate Blood Pressure Pulse Oximetry Intake/Output Intake/Output: Intake & Output 11/20/20 11/21/20 06/0
[2020-11-23 14:44] VITALS: BP 130/65; PULSE 94; RESP 20; TEMP 36.8; O2SAT 100
[2020-11-23 17:17] LABS: Glucose Point of Care 209 mg/dl (65-105)
[2020-11-23 20:00] VITALS: BP 126/52; PULSE 88; RESP 16; TEMP 37.2; O2SAT 100
[2020-11-23 20:36] VITALS: PULSE 88
[2020-11-23] MEDS: INSULIN GLARGINE (*BKC) 100 UNITS/ML 10 UNITS SUB-Q (20:36)
[2020-11-23 20:42] LABS: Glucose Point of Care 142 mg/dl (65-105)
[2020-11-24 05:27] VITALS: BP 111/52; PULSE 77; RESP 16; TEMP 36.7; O2SAT 97
[2020-11-24 05:35] LABS: Hematocrit 28.3 % (42.0-52.0); Mean Corpuscular HGB Conc 31.8 g/dl (32-36); Mean Corpuscular Hemoglobin 26.7 pg (26-34); Platelet Count Result 336 k/mm3 (150-375); Red Blood Count 3.37 M/mm3 (4.6-6.20); Red Cell Distribution Width 14.1 % (11.5-14.5); White Blood Count 7.2 K/mm3 (4.5-10.0)
[2020-11-24 05:45] LABS: Anion Gap 6 mmol/L (8-16); Blood Urea Nitrogen 18 mg/dL (9-20); Calcium 8.9 mg/dL (8.4-10.2); Carbon Dioxide 27 mmol/L (22-30); Chloride 102 mmol/L (98-107); Estimated CRCL calculation 42 ml/min; Estimated Glomerular Filt Rate > 60; Glucose 68 mg/dL (75-110); Potassium 4.2 mmol/L (3.4-5.0); Sodium 135 mmol/L (137-145)
[2020-11-24 09:05] LABS: Glucose Point of Care 87 mg/dl (65-105)
[2020-11-24 09:48] VITALS: PULSE 76
[2020-11-24] MEDS: POLYSACCHARIDE IRON COMPLEX 150 MG CAPSULE BY MOUTH ×2 (09:48→17:12)
[2020-11-24] MEDS: PRAVASTATIN SODIUM 10 MG TABLET PO (09:48)
[2020-11-24] MEDS: CYCLOBENZAPRINE HCL 10 MG TABLET PO ×3 (09:48→17:11)
[2020-11-24] MEDS: APIXABAN 2.5 MG TABLET PO ×2 (09:48→17:11)
[2020-11-24] MEDS: DOXAZOSIN MESYLATE 2 MG TABLET PO (09:48)
[2020-11-24] MEDS: METOPROLOL TARTRATE 25 MG TABLET PO ×2 (09:48→21:09)
[2020-11-24] MEDS: PANTOPRAZOLE 40 MG TABLET PO ×2 (09:48→21:09)
[2020-11-24] MEDS: QUEtiapine FUMARATE 25 MG TABLET PO ×2 (09:49→21:08)
[2020-11-24 11:53] LABS: Glucose Point of Care 200 mg/dl (65-105)
--- NOTE | 2020-11-24 13:12 | PM.DS ---
DS: Admitting Diagnosis Admitting Diagnosis Admitting Diagnosis: UTI DS: Discharge Diagnosis Discharge Diagnosis (1) Altered mental status: Qualifiers: Altered mental status type: delirium Qualified Code(s): R41.0 - Disorientation, unspecified Code(s): R41.82 - Altered mental status, unspecified Status: Acute Assessment and Plan: Acute metabolic encephalopathy. -Patient has acute on chronic confusion and likely due to UTI and dehydration since it resolved with antibiotics and fluids -CT of the brain is negative for acute pathology -I spoke with his son Jeff 11/22/20 about plan of care. I called him again at discharge 11/24/20 and left a message with him to return my call -seizure and altered mental status due to medication seem less likely (2) Acute hyperkalemia: Code(s): E87.5 - Hyperkalemia Status: Acute Assessment and Plan: Resolved, likely due to dehydration (3) Acute dehydration: Code(s): E86.0 - Dehydration Status: Acute Assessment and Plan: Resolved (4) Acute UTI: Code(s): N39.0 - Urinary tract infection, site not specified Status: Acute Assessment and Plan: Patient received ceftriaxone and transition to cefdinir -I called the lab who states the urine culture grew mixed jatinder. They are going to identify the organisms since urine was a catheterization urine. I do suspect it was causing an infection since he improved so much with antibiotics and fluids. Since he improved on ceftriaxone, will discharge him on cefdinir. -Catheter has been changed out. 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: with assisted use Qualified Code(s): E11.9 - Type 2 diabetes mellitus without complications; Z79.4 - custodial (current) use of insulin Code(s): E11.9 - Type 2 diabetes mellitus without complications Status: Acute Assessment and Plan: Last glucose 200 but was down to 68 this morning -patient's A1c is 7.5 -I recommend he continue with his home Lantus and Tradjenta and stop his mealtime scheduled insulin -follow-up with facility provider in adjust medications according to glucose trends (6) Cervical myelopathy: Code(s): G95.9 - Disease of spinal cord, unspecified Status: Acute Assessment and Plan: Pt had sx at [place] in august and has not been able to walk since -he continues to be flexed in bed and unable to dosiflex -I recommended to his son to f/u with the neurosurgeon sooner rather than later although I suspect this may be a long-term affect. DS: Summary Hospital Course Hospital Course: Patient is an 85-year-old male who was brought to emergency room for increased altered mental status and shakiness. The facility stated he had a witnessed convulsive event with no notable tongue biting or history of seizure. Vitals in the ER were temperature 36.6? C, pulse 86, respiratory rate 20, blood pressure 101/51, pulse ox 99 on room air. CBC showed a leukocytosis of 11.1, hemoglobin 9.5, hematocrit 30.3, platelets 400. BMP showed dehydration with a creatinine 1.6, BUN 41, potassium 5.4, sodium 136, CO2 20 chloride 104, glucose 186. UA suspicious for UTI. Head CT showed no acute abnormality. Patient was admitted to the hospitalist service and started on IV fluids and ceftriaxone for presumed UTI. He had no further convulsion episodes and his altered mental status improved. Although he still back confused with the year and the president, he was able to hold a full conversation, eat meals on his own, and recalled events and family members names. His urinalysis grew out multiple organisms but I have asked the lab to identify these. Si
[2020-11-24] MEDS: INSULIN ASPART (*BKC) 100 UNITS/ML SUB-Q (17:18)
[2020-11-24 17:30] LABS: Glucose Point of Care 234 mg/dl (65-105)
[2020-11-24 20:54] VITALS: BP 106/48; PULSE 98; RESP 17; TEMP 36.6; O2SAT 100
[2020-11-24 21:03] LABS: Glucose Point of Care 175 mg/dl (65-105)
[2020-11-24] MEDS: INSULIN GLARGINE (*BKC) 100 UNITS/ML 8 UNITS SUB-Q (21:08)
[2020-11-24 21:09] VITALS: PULSE 100
--- NOTE | 2020-11-28 13:04 | PC.NURSE ---
Blood cx are negative. Urine cx growth of jatinder. Most likely contamination.
== END 2020-11-25 00:14 | DRG 690 ==
LOC: ANHED 16:48 → ANH3MED 18:58
PROVIDERS: Emergency Medicine; Nurse Practitioner; Physician Assistant; Admitting Provider Family Medicine; Emergency Provider Emergency Medicine; PCP Physician Assistant; Visit Provider Family Medicine
DX: N39.0 Urinary tract infection, site not specified (principal); G95.9 Disease of spinal cord, unspecified; E87.5 Hyperkalemia; E86.0 Dehydration; E11.9 Type 2 diabetes mellitus without complications; R41.0 Disorientation, unspecified; E78.5 Hyperlipidemia, unspecified; Z79.4 Long term (current) use of insulin; Z79.899 Other long term (current) drug therapy; Z85.46 Personal history of malignant neoplasm of prostate; Z87.891 Personal history of nicotine dependence
CPT/HCPCS: 36415; 70450; 80048; 80053; 81001; 82948; 83036; 85025; 85027; 86140; 87040; 87077; 87086; 87088; 87186; 93005; 96365; 97110; 97161; 97165; 97530; 99285; A9270; G0378; J0696; J1815; J7030

== ENCOUNTER 2020-12-04 09:08 | Inpatient (IN) | payer MEDICARE, SELFPAY ==
[2020-12-04] VITALS (14 sets, daily range): BP systolic 93–112; BP diastolic 43–62; PULSE 90–114; RESP 12–24; TEMP 35.9–36.4; O2SAT 98–100; BMI 17.4
--- NOTE | ~2020-12-04 | CT_ITS ---
EXAMINATION: CT brain wo con INDICATION: Transient alteration of awareness, seizures COMPARISON: 11/21/2020 TECHNIQUE: Standard unenhanced head CT. The dose-length product (DLP) was 605.33 mGy-cm. The mA was a djusted according to patient size. Iterative reconstruction technique was employed. FINDINGS: There is no acute intraparenchymal hemorrhage. No evidence of mass lesion. No evidence of a cute infarction. 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 There is mild periventric ular and subcortical hypodensity probably related to small vessel ischemic disease. There is mild pro minence of the sulci and ventricles related to cerebral atrophy. Intracranial calcified cerebral athe rosclerosis is noted. There are no extra-axial collections. There is no mass effect or midline shift. Changes in the globes are likely from ocular lens surgery. A small right mastoid effusion is noted. 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 IMPRESSION: 1. No acute intracranial abnormality. 2. Age related findings. Reviewed, dictated and finalized at location A.
--- NOTE | 2020-12-04 09:17 | ECG_ITS ---
Measurements Intervals [place] Rate: 106 P: 71 CO: 222 QRS: 2 QRSD: 89 T: 70 QT: 329 QTc: 438 Interpretive Statements SINUS TACHYCARDIA WITH FIRST DEGREE AV BLOCK LOW QRS VOLTAGE IN LIMB LEADS CANNOT RULE OUT SEPTAL INFARCT, AGE INDETERMINATE BORDERLINE T WAVE ABNORMALITY- HIGH LATERAL LEADS Electronically Signed On 12-04-2020 12:21:35 CDT by Des Gatica D.O.
[2020-12-04 09:29] LABS: Basophils Percent Auto 0.2 % (0.2-1.2); Eosinophils Absolute Auto 0.2 K/mm3 (0-0.3); Eosinophils Percent Auto 1.7 % (0-4.4); Hematocrit 31.3 % (42.0-52.0); Hemoglobin 9.7 g/dL (14.0-18.0); Immature Granulocyte Absolute 0.07 K/mm3 (0.00-0.031); Immature Granulocyte Percent A 0.7 % (0-0.5); Lymphocytes Absolute Auto 1.31 K/mm3 (0.9-3.2); Lymphocytes Percent Auto 13.4 % (18.3-44.2); Mean Corpuscular Hemoglobin 26.6 pg (26-34); Mean Platelet Volume 9.1 fl (7.4-10.4); Monocytes Absolute Auto 0.8 K/mm3 (0.1-0.6); Monocytes Percent Auto 7.7 % (2.6-8.5); Neutrophils Absolute Auto 7.4 K/mm3 (1.3-6.7); Neutrophils Percent Auto 76.3 % (45.5-73.1); Platelet Count Result 431 k/mm3 (150-375); Red Blood Count 3.64 M/mm3 (4.6-6.20); Red Cell Distribution Width 14.8 % (11.5-14.5); White Blood Count 9.8 K/mm3 (4.5-10.0)
[2020-12-04 09:33] LABS: Add Urine Microscopic? YES; Appearance Urine Clear (Clear); Bilirubin Urine Negative (Negative); Blood Urine Negative (Negative); Color Urine Straw (Yellow); Glucose Urine UA 1+ mg/dL (Negative); Ketones Urine Trace mg/dL (Negative); Leukocyte Esterase Ur Trace LEU/UL (Negative); Mucus Urine Rare /lpf; Nitrate Urine Negative (Negative); Protein Urine Negative (Negative); Specific Grav Ur 1.012 (1.001-1.035); Urobilinogen Urine Negative mg/dL (<2.0)
[2020-12-04 09:36] LABS: Alanine Aminotransferase 13 U/L (4-50); Albumin Level 3.2 g/dL (3.5-5.1); Alkaline Phosphatase 86 U/L (38-126); Anion Gap 8 mmol/L (8-16); Aspartate Amino Transferase 22 U/L (17-59); Bilirubin,Total 0.4 mg/dL (0.2-1.3); Blood Urea Nitrogen 25 mg/dL (9-20); Calcium 9.1 mg/dL (8.4-10.2); Carbon Dioxide 23 mmol/L (22-30); Chloride 102 mmol/L (98-107); Estimated Glomerular Filt Rate > 60; Glucose 221 mg/dL (75-110); Potassium 4.5 mmol/L (3.4-5.0); Sodium 133 mmol/L (137-145)
--- NOTE | 2020-12-04 09:38 | ED.GENADULT ---
HPI - General Adult General Chief complaint: Seizure Stated complaint: seizure like activity Time Seen by Provider: 12/04/20 09:10 Source: patient, EMS and RN notes reviewed History of Present Illness HPI narrative: Patient is a 85 y/o male sent from [facility] for seizure. Patient reportedly had 3 seizures, each lasting up to 30 seconds. There is no known alleviating or exacerbating factor. Patient is poor historian. He is not sure what happened. He denies any pain. Related Data Home Medications Medication Instructions Recorded Confirmed Lantus Solostar U-100 Insulin 10 unit SUBCUT HS 09/25/20 11/21/20 acetaminophen 650 mg PO Q4-8H PRN 09/25/20 11/21/20 calcium carbonate-vitamin D3 1 tablet PO BID 09/25/20 11/21/20 [Calcium 600 + D(3)] doxazosin 2 mg PO DAILY 09/25/20 11/21/20 potassium chloride 20 meq PO DAILY 09/25/20 11/21/20 pravastatin 10 mg PO DAILY 09/25/20 11/21/20 quetiapine 25 mg PO BID 09/25/20 11/21/20 ramelteon 8 mg PO HS 09/25/20 11/21/20 Glucagon Emergency Kit (human) 1 unit IM PRN PRN 11/21/20 11/21/20 Poly-Iron 150 Forte 1 cap BYMOUTH BID 11/21/20 11/21/20 Tradjenta 5 mg PO DAILY 11/21/20 11/21/20 apixaban 2.5 mg PO BID 11/21/20 11/21/20 cyclobenzaprine 10 mg PO TID 11/21/20 11/21/20 metoprolol tartrate 25 mg PO BID 11/21/20 11/21/20 pantoprazole 40 mg PO BID 11/21/20 11/21/20 bisacodyl 5 mg PO ONCE PRN 12/04/20 insulin lispro [Humalog Pen] unit SUBCUT 12/04/20 lisinopril-hydrochlorothiazide 1 tablet PO DAILY 12/04/20 Allergies Allergy/AdvReac Type Severity Reaction Status Date / Time No Known Allergies Allergy Verified 12/04/20 09:16 Review of Systems Review of Systems: ROS unobtainable: Yes unobtainable due to mental status PMFSH Past Medical History Medical History Benign prostatic hyperplasia Chronic anemia Hyperlipidemia Hypertension Insulin dependent type 2 diabetes mellitus Prostate cancer Surgical History Surgical History History of prostatectomy Family History Family History Mother Cerebrovascular accident Father Cerebrovascular accident Throat cancer Social History Social History Social History: Surrogate decision maker: Jatin Bhat, son. Code status: Full code. Smoking packs per day: 1 Smoking cigarettes per day: 20.0 Years smoked: 5 Smoking pack-years: 5.00 Smoking status: Former smoker Alcohol intake: never Substance use: never Substance use type: does not use Additional living arrangements comments: He lives in his own home until August 2020. Additional occupation/education comments: Retired from [employer]. Gender identity (if verbalized by the patient): Male Spiritual care concerns: No Exam Const: General: no acute distress and ill appearing Orientation/consciousness: oriented to person, oriented to place and confusion HENMT: Head: normocephalic Ears: external ears normal General nose exam: Normal external nose present Eyes: General: appearance normal, both eyes and all related structures Conjunctivae: conjunctivae normal Neck: Neck: normal visual inspection and full ROM Chest: Chest palpation & inspection: normal inspection of the chest and no tenderness Resp: Effort & Inspection: normal respiratory effort Auscultation: clear to auscultation bilaterally Cardio: Rate: tachycardic Rhythm: regular rhythm GI: GI Palp: No abdominal tenderness and Yes Soft to palpation Skin: General skin exam: normal color and turgor normal Neuro: General: oriented to person and oriented to place Extrem: General: muscle atrophy Psych: Appearance: grossly normal Affect: Blunted affect present Course Consultations Consultation #1: Discussed with RHYS Davison, who agrees to admit. Date: 12/04/20
[2020-12-04 10:16] LABS: Lactic Acid Reflex 1.2 mmol/L (0.7-2.1)
[2020-12-04] MEDS: levETIRAcetam 500MG/NACL 100ML 500 MG/100 ML BAG 400 MG IVPB ×2 (14:32→20:46)
--- NOTE | 2020-12-04 17:25 | ADMGEN ---
This patient, Shanna Bhat, was admitted to Medical Room 343-01. Patient/family oriented to hospital policies and general routines including ID bracelet, bed and alarms, visiting hours, pain management, procedures, bathroom and other care routines, personal items, smoking policy, room service/diet, and visiting hours. Information on how to activate the Rapid Response Team has been discussed. Patient/Family are encouraged to report perceived risks to care and to ask questions if they do not understand what they are told or what they should do.
[2020-12-04 17:35] LABS: Glucose Point of Care 130 mg/dl (65-105)
--- NOTE | 2020-12-04 19:01 | PM.IMHP ---
H&P: HPI History of Present Illness Date/Time: 12/04/20 19:01 this is a 85-year-old male patient sent [place] [facility] [place] for possible seizure. it Was noted that the patient possibly had three seizures, lasting approximately 30 seconds. He has not had any previous history of seizure disorder. The patient has dementia and is not able to answer any questions. His son Jeff is at the bedside answer questions. The son Jeff said that he was told that the patient only had 2 seizures. Intracranial abnormality. Age-related findings. The patient previously had a cervical surgery are within the last couple months. The patient has anemia and his H&H is stable. Was two hundred twenty-one than 130. The patient was started on Keppra. Recommended that Neurology see the patient. The patient is being admitted to the observation service on date of service of 12/04/2020 Chief Complaint: Possible seizure Review of Systems Review of Systems: All systems reviewed & are unremarkable except as noted in HPI and below Constitutional: Constitutional: Reports as per HPI and Reports no additional constitutional complaints Eyes: Eyes: Reports as per HPI and Reports no additional eye complaints ENT: Reports system reviewed and no additional complaints, except as documented and Reports Normal hearing present Cardiovascular: Cardiovascular: Reports no additional cardiovascular complaints Respiratory: Respiratory: Reports no additional respiratory complaints and Reports no additional respiratory complaints Gastrointestinal: Gastrointestinal: Reports as per HPI and Reports no additional gastrointestinal complaints Musculoskeletal: Musculoskeletal: Reports no additional musculoskeletal complaints Integumentary/Breasts: Skin/Breast: Reports system reviewed and no additional complaints, except as docu and Reports as per HPI Neurologic: Reports system reviewed and no additional complaints, except as documented, Reports as per HPI and Reports Normal hearing present Psychiatric: Psychiatric: Reports no additional psychiatric complaints and Reports as per HPI Endocrine: Endocrine: Reports no additional endocrine complaints Hematologic/Lymphatic: Hematologic/Lymphatic: Reports no additional hematologic/lymphatic complaints Allergic/Immunologic: Allergic/Immunologic: Reports no additional allergic/immunologic complaints [facility] Past Medical History Medical History Benign prostatic hyperplasia Chronic anemia Hyperlipidemia Hypertension Insulin dependent type 2 diabetes mellitus Prostate cancer Surgical History Surgical History (Updated 12/04/20 @ 19:11 by Laney Peralta NP) H/O neck surgery History of prostatectomy Family History Family History Mother Cerebrovascular accident Father Cerebrovascular accident Throat cancer Social History Social History (Updated 12/04/20 @ 19:16 by Laney Peralta NP) Social History: Surrogate decision maker: Jatin Bhat, son. Code status: DNR per son he only has one son. The patient is . The patient is retired. Smoking packs per day: 1 Smoking cigarettes per day: 20.0 Years smoked: 5 Smoking pack-years: 5.00 Smoking status: Former smoker Alcohol intake: former Substance use: never Substance use type: does not use Additional living arrangements comments: He lives in his own home until August 2020. Additional occupation/education comments: Retired from [employer]. Gender identity (if verbalized by the patient): Male Sexual Orientation (if Verbalized by the Patient): Straight or Heterosexual Spiritual care concerns: No Meds Home Medications and Allergies Home Medications Medication Instructions Recorded Confirmed Type Lantus Solostar U-100 Insulin 10 unit SUBCUT HS 09/25/20 11/21/20 History acetaminophen 650 mg PO Q4-8H PRN
[2020-12-04] MEDS: INSULIN GLARGINE (*BKC) 100 UNITS/ML 10 UNITS SUB-Q (20:45)
[2020-12-04] MEDS: QUEtiapine FUMARATE 25 MG TABLET PO (20:45)
[2020-12-04] MEDS: PANTOPRAZOLE 40 MG TABLET PO (20:45)
[2020-12-04] MEDS: METOPROLOL TARTRATE 25 MG TABLET PO (20:46)
[2020-12-04 20:48] LABS: Glucose Point of Care 184 mg/dl (65-105)
[2020-12-05] VITALS (11 sets, daily range): BP systolic 92–108; BP diastolic 38–61; PULSE 65–88; RESP 16–18; TEMP 35.8–36.7; O2SAT 96–100; BMI 17.4
[2020-12-05 05:45] LABS: Basophils Percent Auto 0.5 % (0.2-1.2); Eosinophils Absolute Auto 0.3 K/mm3 (0-0.3); Eosinophils Percent Auto 4.3 % (0-4.4); Hematocrit 27.7 % (42.0-52.0); Hemoglobin 8.8 g/dL (14.0-18.0); Immature Granulocyte Absolute 0.04 K/mm3 (0.00-0.031); Immature Granulocyte Percent A 0.6 % (0-0.5); Lymphocytes Absolute Auto 0.93 K/mm3 (0.9-3.2); Mean Corpuscular HGB Conc 31.8 g/dl (32-36); Mean Corpuscular Hemoglobin 26.7 pg (26-34); Mean Corpuscular Volume 84.2 fl (80-100); Mean Platelet Volume 8.9 fl (7.4-10.4); Monocytes Absolute Auto 0.6 K/mm3 (0.1-0.6); Monocytes Percent Auto 9.8 % (2.6-8.5); Neutrophils Absolute Auto 4.3 K/mm3 (1.3-6.7); Neutrophils Percent Auto 69.8 % (45.5-73.1); Platelet Count Result 396 k/mm3 (150-375); Red Blood Count 3.29 M/mm3 (4.6-6.20); Red Cell Distribution Width 14.9 % (11.5-14.5); White Blood Count 6.2 K/mm3 (4.5-10.0)
[2020-12-05] MEDS: CYCLOBENZAPRINE HCL 10 MG TABLET PO ×3 (05:49→17:48)
[2020-12-05 06:02] LABS: Alanine Aminotransferase 12 U/L (4-50); Alkaline Phosphatase 77 U/L (38-126); Anion Gap 9 mmol/L (8-16); Aspartate Amino Transferase 22 U/L (17-59); Bilirubin,Total 0.4 mg/dL (0.2-1.3); Blood Urea Nitrogen 23 mg/dL (9-20); Calcium 8.6 mg/dL (8.4-10.2); Carbon Dioxide 24 mmol/L (22-30); Chloride 103 mmol/L (98-107); Estimated CRCL calculation 39 ml/min; Estimated Glomerular Filt Rate > 60; Glucose 100 mg/dL (75-110); Potassium 3.9 mmol/L (3.4-5.0); Sodium 136 mmol/L (137-145)
[2020-12-05 06:03] LABS: Lactic Acid Reflex 0.8 mmol/L (0.7-2.1)
[2020-12-05 06:40] LABS: Hemoglobin A1C 7.9 % (<5.7)
--- NOTE | 2020-12-05 06:49 | PC.NURSE ---
Attempted to call patient's contact Jeff to attempt filling out MRI patient screening form. Unable to reach him at this time.
[2020-12-05 07:40] LABS: Glucose Point of Care 94 mg/dl (65-105)
[2020-12-05] MEDS: DOXAZOSIN MESYLATE 2 MG TABLET PO (08:35)
[2020-12-05] MEDS: levETIRAcetam 500MG/NACL 100ML 500 MG/100 ML BAG 400 MG IVPB ×2 (08:36→20:55)
[2020-12-05] MEDS: PRAVASTATIN SODIUM 10 MG TABLET PO (08:36)
[2020-12-05] MEDS: POLYSACCHARIDE IRON COMPLEX 150 MG CAPSULE PO ×2 (08:36→17:48)
[2020-12-05] MEDS: APIXABAN 2.5 MG TABLET PO ×2 (08:36→17:48)
[2020-12-05] MEDS: PANTOPRAZOLE 40 MG TABLET PO ×2 (08:36→20:56)
[2020-12-05] MEDS: QUEtiapine FUMARATE 25 MG TABLET PO (08:37)
[2020-12-05] MEDS: METOPROLOL TARTRATE 25 MG TABLET PO ×2 (09:09→20:55)
--- NOTE | 2020-12-05 10:02 | PC.NURSE ---
call to pt's son's cell phone to complete MRI questionaire
--- NOTE | 2020-12-05 10:47 | WPDNEURCNPN ---
Assessment and Plan Assessment and plan (1) Seizure: Code(s): R56.9 - Unspecified convulsions Status: Acute Additional Plan ongoing history of multiple medical problems in addition to the recent history of seizures for which he can be started on the anticonvulsants and other medication can be continued as such he will require the rest retic physical therapy considering the age clinical status and the cervical myelopathy ongoing diagnosis further intervention is probably questionable . Consult date: 12/05/20 Time Seen: 09:00 HPI: Shanna Bhat is a 85 year old male Has been admitted to the [facility] through the emergency room where he was sent from the [facility] for possible seizures and with the information that he had 3 seizures lasting [id number] with no previous history of seizure disorder but patient does have ongoing history of dementia in addition patient has undergone cervical spine surgery in the past and was also noted to have high blood pressure in the emergency room because of the seizure he was started on Keppra and was admitted for further evaluation further investigation documented only mild abnormalities on the routine lab and the CT scan of the head did not document any growth or major vascular stroke patient has been receiving Seroquel 25 mg twice a day for the ongoing sun downing in addition to the antihypertensive and anti hypercholesterolemia medications and apixaban Review of Systems Review of Systems: All systems reviewed & are unremarkable except as noted in HPI and below PMFSH Past Medical History Medical History Benign prostatic hyperplasia Chronic anemia Hyperlipidemia Hypertension Insulin dependent type 2 diabetes mellitus Prostate cancer Surgical History Surgical History H/O neck surgery History of prostatectomy Family History Family History Mother Cerebrovascular accident Father Cerebrovascular accident Throat cancer Social History Social History Social History: Surrogate decision maker: Jatin Bhat, son. Code status: DNR per son he only has one son. The patient is . The patient is retired. Smoking packs per day: 1 Smoking cigarettes per day: 20.0 Years smoked: 5 Smoking pack-years: 5.00 Smoking status: Former smoker Alcohol intake: former Substance use: never Substance use type: does not use Additional living arrangements comments: He lives in his own home until August 2020. Additional occupation/education comments: Retired from [employer]. Gender identity (if verbalized by the patient): Male Sexual Orientation (if Verbalized by the Patient): Straight or Heterosexual Spiritual care concerns: No Meds Home Medications and Allergies Home Medications Medication Instructions Recorded Confirmed Type Lantus Solostar U-100 Insulin 10 unit SUBCUT HS 09/25/20 12/04/20 History acetaminophen See Rx Instructions .ROUTE 09/25/20 12/04/20 History .COMPLEX PRN calcium carbonate-vitamin D3 1 tablet PO BID 09/25/20 12/04/20 History [Calcium 600 + D(3)] doxazosin 2 mg PO DAILY 09/25/20 12/04/20 History potassium chloride 20 meq PO DAILY 09/25/20 12/04/20 History pravastatin 10 mg PO DAILY 09/25/20 12/04/20 History quetiapine 25 mg PO BID 09/25/20 12/04/20 History ramelteon 8 mg PO HS 09/25/20 12/04/20 History Glucagon Emergency Kit (human) 1 unit IM PRN PRN 11/21/20 12/04/20 History Poly-Iron 150 Forte 1 cap BYMOUTH BID 11/21/20 12/04/20 History Tradjenta 5 mg PO DAILY 11/21/20 12/04/20 History apixaban 2.5 mg PO BID 11/21/20 12/04/20 History cyclobenzaprine 10 mg PO TID 11/21/20 12/04/20 History metoprolol tartrate 25 mg PO BID 11/21/20 12/04/20 History pantoprazole 40 mg PO BID 11/21/20
[2020-12-05 12:23] LABS: Glucose Point of Care 195 mg/dl (65-105)
--- NOTE | 2020-12-05 13:28 | PCNSR ---
On 12/05/20, the student, Kina Yousif, provided care and completed [facility] documentation on this patient. I have reviewed the student's documentation and agree with the findings.
--- NOTE | 2020-12-05 15:21 | PM.IMPN ---
Progress Note: A&P Assessment and Plan (1) Seizure: Code(s): R56.9 - Unspecified convulsions Status: Acute Assessment and Plan: The patient has no known seizure disorder. Patient is DNR. Spoke with son today. The patient recently had a cervical surgery in August but without benefit. Patient was started on Keppra. Neuro consulted. Continue seizure precautions. Ativan availabel PRN as well. (2) Hypertension: Code(s): I10 - Essential (primary) hypertension Status: Acute Assessment and Plan: Patient's BP was soft today. He did receive his Cardura this morning. We held HCTZ/Lisinopril. Hold potassium as well. Continue metoprolol. Will hold Cardura and start that back up tomorrow night if his BP tolerates. He has lost some weight so suspect he is over treated. Monitor overnight to ensure BP remains stable (3) Benign prostatic hyperplasia: Code(s): N40.0 - Benign prostatic hyperplasia without lower urinary tract symptoms Status: Acute Assessment and Plan: As above. Continue with doxazosin but will use (4) Insulin dependent type 2 diabetes mellitus: Code(s): E11.9 - Type 2 diabetes mellitus without complications; Z79.4 - [facility] (current) use of insulin Status: Acute Assessment and Plan: A1c 7.9. The patient's blood glucose was reviewed on 12/05. Glucose remains well controlled. Continue AccuCheks covering with sliding scale. Hypoglycemia protocol available as needed. Continue current medications with Lantus (5) Altered mental status: Qualifiers: Altered mental status type: delirium Qualified Code(s): R41.0 - Disorientation, unspecified Code(s): R41.82 - Altered mental status, unspecified Status: Acute Assessment and Plan: Patient alert but confused which is chronic. He is more somnolent per RN later in the day so will back off on the Seroquel. Follow (6) DVT prophylaxis: Code(s): Z29.9 - Encounter for prophylactic measures, unspecified Status: Acute Assessment and Plan: Mulu Sherwood Date/time seen: 12/05/20 15:21 Interval history: 85yo male with severe spinal stenosis here for witnessed seizure like activity. Patient alert but confused. Hx is unreliable. No hx of seizures. Slept okay. Accoasional pain in the upper back at the site of the surgery. No hip pain Review of Systems Review of Systems: ROS unobtainable: Yes unobtainable due to mental status Exam Narrative: Exam Narrative: AF 97.1 92/38 67 18 96% ra Gen - NARD Chest - CTA bilaterally CV - RRR S1/S2; Tele showing episode of narrow complex tachycardia (rate 150) possibly slow SVT or AFlutter Abd - Soft, NT/ND, Positive BS Back - lower c-spine midline vertical well healed scar Ext - No pedal edema Neuro - Alert but confused. Bilateral LE with severe flexion contractures Psych - Nml mood and affect Skin - small shallow ulcer to the right lateral hip and right elbow Objective Data Vital Signs Vital Signs: Vital Signs - 24 hr 12/04/20 16:23 12/04/20 16:50 12/04/20 17:20 Temperature 97.1 F L Pulse Rate 99 92 93 Respiratory Rate 24 H 16 Blood Pressure 101/62 105/43 L Pulse Oximetry 100 100 12/04/20 19:47 12/04/20 20:00 12/04/20 20:46 Temperature 96.6 F L Pulse Rate 90 95 91 Respiratory Rate 16 Blood Pressure 100/47 L Pulse Oximetry 99 12/05/20 00:00 12/05/20 04:00 12/05/20 08:00 Temperature 96.8 F L 96.5 F L 97.2 F L Pulse Rate 73 71 76 Respiratory Rate 16 16 18 Blood Pressure 98/61 L 102/41 L 105/46 L Pulse Oximetry 99 99 100 12/05/20 09:09 12/05/20 09:22 12/05/20 10:05 Temperature Pulse Rate 76 71 Respiratory Rate Blood Pressure 108/50 L Pulse Oximetry 98 12/05/20 12:00 12/05/20 14:02 Temperature 97.1 F L Pulse Rate 67 Respiratory Rate 18 Blood Pressure 92/46 L 92/38 L Pulse Oximetry 96 Intake/Output Intake/Outpu
[2020-12-05 17:29] LABS: Glucose Point of Care 213 mg/dl (65-105)
[2020-12-05] MEDS: INSULIN ASPART (*BKC) 100 UNITS/ML SUB-Q (17:49)
[2020-12-05] MEDS: QUEtiapine FUMARATE 12.5 MG TABLET PO (20:56)
[2020-12-05] MEDS: INSULIN GLARGINE (*BKC) 100 UNITS/ML 10 UNITS SUB-Q (21:05)
[2020-12-05 21:30] LABS: Glucose Point of Care 196 mg/dl (65-105)
[2020-12-06] VITALS: PULSE 90
[2020-12-06 04:00] VITALS: PULSE 75
[2020-12-06 05:36] VITALS: BP 104/53; PULSE 78; RESP 18; TEMP 36.6; O2SAT 97
[2020-12-06] MEDS: CYCLOBENZAPRINE HCL 10 MG TABLET PO ×2 (06:14→12:25)
[2020-12-06 08:00] VITALS: BP 102/59; PULSE 74; PULSE 75; RESP 16; TEMP 36.7; O2SAT 100
[2020-12-06 08:05] LABS: Glucose Point of Care 84 mg/dl (65-105)
[2020-12-06] MEDS: APIXABAN 2.5 MG TABLET PO (08:34)
[2020-12-06] MEDS: PANTOPRAZOLE 40 MG TABLET PO (08:34)
[2020-12-06] MEDS: POLYSACCHARIDE IRON COMPLEX 150 MG CAPSULE PO (08:34)
[2020-12-06] MEDS: PRAVASTATIN SODIUM 10 MG TABLET PO (08:34)
[2020-12-06] MEDS: levETIRAcetam 500MG/NACL 100ML 500 MG/100 ML BAG 400 MG IVPB (08:34)
[2020-12-06 08:35] VITALS: PULSE 77
[2020-12-06] MEDS: METOPROLOL TARTRATE 25 MG TABLET PO (08:35)
--- NOTE | 2020-12-06 10:04 | WPDNEUROLOGY ---
Neurology EEG Report General Information Date of Study: 12/05/20 TEST EEG DIAGNOSIS seizures CONDITION OF RECORDING drowsy and sleep EEG NUMBER [id number] CLINICAL HISTORY no particular history available patient slept throughout the whole set up an tracing bur the clinical indication is seizures EEG DESCRIPTION whole record consists of low to medium voltage 5 to 7 hertz per 2nd theta followed by bilateral symmetrical sleep activity with normal and symmetrical sleep spindles. hyperventilation not done. photic stimulation not done. non paroxysmal .nonfocal. nonlateralizing. IMPRESSION normal record during drowsiness and sleep
[2020-12-06 11:48] LABS: Glucose Point of Care 218 mg/dl (65-105)
[2020-12-06 12:00] VITALS: BP 112/53; PULSE 82; PULSE 84; RESP 18; TEMP 36.6; O2SAT 100
[2020-12-06] MEDS: INSULIN ASPART (*BKC) 100 UNITS/ML SUB-Q (13:42)
--- NOTE | 2020-12-06 14:37 | PM.DS ---
DS: Admitting Diagnosis Admitting Diagnosis Admitting Diagnosis: Seizure DS: Discharge Diagnosis Discharge Diagnosis (1) Seizure: Code(s): R56.9 - Unspecified convulsions Status: Acute Assessment and Plan: The patient has no known seizure disorder. Patient is DNR. The patient recently had a cervical surgery in August but without benefit. CT chapraro showing no acute findigs. Patient was started on Keppra. Neuro consulted. Seizure precautions. Ativan available PRN as well. EEG normal. He had a recent MRI brain which was normal so this was not repeated. No recurrent seizures. No clear etiology. (2) Hypertension: Code(s): I10 - Essential (primary) hypertension Status: Acute Assessment and Plan: Patient's BP was soft at times. We held HCTZ/Lisinopril but continue metoprolol. We held Cardura and started it back at night. He has lost some weight so suspect he is over treated. BP improved with holding some of his medications (3) Benign prostatic hyperplasia: Code(s): N40.0 - Benign prostatic hyperplasia without lower urinary tract symptoms Status: Acute Assessment and Plan: As above. Continue with doxazosin but will use it at night if he tolerates (4) Insulin dependent type 2 diabetes mellitus: Code(s): E11.9 - Type 2 diabetes mellitus without complications; Z79.4 - skilled nursing (current) use of insulin Status: Acute Assessment and Plan: A1c 7.9. The patient's blood glucose was monitored closely with AccuCheks covering with sliding scale. Hypoglycemia protocol was available as needed. No hypoglycemia. (5) Altered mental status: Qualifiers: Altered mental status type: delirium Qualified Code(s): R41.0 - Disorientation, unspecified Code(s): R41.82 - Altered mental status, unspecified Status: Acute Assessment and Plan: Patient alert but confused which is chronic. He is more somnolent per RN later in the day so we decreased the Seroquel dose. DS: Summary Hospital Course Reason for hospitalization: 85yo male here for seizure like activity. Please see H&P for details. Hospital Course: Please see above for details of hospital course. Status at Discharge Cognitive/behavioral status at discharge: Stable Time Spent with Patient Time attestation: Total time spent providing and/or coordinating discharge services: 35 minutes Time spent: Greater than 30 minutes Specific discharge activities: discussed hospital course and discharge plan with son Exam Narrative: Exam Narrative: AF 97.8 112/53 82 18 100% ra Gen - NARD Chest - clear anteriorly, nml RR CV - RRR S1/S2; Tele showing episode of narrow complex tachycardia (rate 140) probably ATach Abd - Soft, NT/ND, Positive BS Ext - No pedal edema Neuro - Alert but confused. Bilateral LE with severe flexion contractures Psych - Nml mood and affect Skin - warm and dry DS: Data Data Completed and Pending Labs on day of discharge: Labs from last 24 hours 12/06/20 12/06/20 12/05/20 11:43 08:03 20:53 POC Capillary Glucose 218 H 84 196 H 12/05/20 17:24 POC Capillary Glucose 213 H Discharge Plan Discharge Attending physician on discharge: Isaac Birch Consulting providers: Daryl Lynch Discharging Clinician: Isaac Birch Anticipated Discharge Date/Time: 12/06/20 14:59 Patient Disposition: NH Assisted/Asst Living Activity: as tolerated Diet: diabetic Discharge Instructions: Continue Glucerna shakes BID Please avoid large gathering, wear face coverings in public and practice social distance. Please check glucose before meals and before bed. Record for the doctor's review. Check blood pressure 1 to 2 times a day. Record for the doctor's review. Take precautions to avoid falls. Avoid NSAIDs (ibuprofen, naproxen, Aleve). Tylenol is safe to take. [facility]
== END 2020-12-06 16:41 | DRG 101 ==
LOC: ANHED 09:40 → ANH3MED 14:31
PROVIDERS: Nurse Practitioner; Admitting Provider Family Medicine; Emergency Provider Emergency Medicine; PCP Physician Assistant; Visit Provider Internal Medicine
DX: G40.909 Epilepsy, unspecified, not intractable, without status epilepticus (principal); Z68.1 Body mass index [BMI] 19.9 or less, adult; I10 Essential (primary) hypertension; R63.6 Underweight; E11.9 Type 2 diabetes mellitus without complications; N40.0 Benign prostatic hyperplasia without lower urinary tract symptoms; D64.9 Anemia, unspecified; E78.5 Hyperlipidemia, unspecified; R41.82 Altered mental status, unspecified; Z66 Do not resuscitate; M48.00 Spinal stenosis, site unspecified; Z85.46 Personal history of malignant neoplasm of prostate; Z79.4 Long term (current) use of insulin; Z87.891 Personal history of nicotine dependence
CPT/HCPCS: 36415; 70450; 80053; 81001; 82948; 83036; 83605; 84443; 85025; 93005; 95816; 96365; 96376; 99285; A9270; G0378; J1815; J1953